=== PATIENT | female | born 1950 | race Caucasian/White ===

== ENCOUNTER 2016-08-13 13:32 | Inpatient (IN) | payer MEDICARE, OTHER ==
[~2016-08-13] VITALS: Ht 162.6 cm; Wt 69.1 kg
[~2016-08-13 13:32] MED LIST: BUPR150T9 PO; CHOL3000 PO; ESTR0.5T PO; FLUT12AE8 IH; GABA-500 PO; LEVO50TA39 PO; MULT1CAP33 PO; VALA500T38 PO
[2016-08-13 13:35] VITALS: BP 130/67; PULSE 104; RESP 20; O2SAT 90
--- NOTE | 2016-08-13 14:05 | ED.REPORT ---
HPI-General Illness Date of Service Aug 13, 2016 ED Provider: Kyle Lewis DO This patient is a 65 year old female with a history of hypothyroidism, depression, and HSV presenting to the ED complaining of worsening SOB for 2 weeks. Her SOB started in October 2015 but she wasn't able to get a diagnosis. She has received CT scans previously which showed non-specific lung nodules which she is scheduled to have a biopsy for next Monday. Pt. also admits to intermittent cough with white sputum. She states cough is relieved by calming down but not relieved by cough syrup. She also complains of chills and headache but denies fever, CP, and urinary symptoms. Father had lung cancer. Pt. denies smoking. Her daughter states the patient is a hoarder and has a very dirty house with lots of allergens like dust and mold present. Nursing Notes Stated Complaint: SHORTNESS OF BREATH/COUGH Chief Complaint: General Complaint Nursing Notes Reviewed: Yes Allergies: Coded Allergies: No Known Allergies (Unverified , 08/10/16) Scheduled Bupropion HCl (Zyban) 150 Mg Tablet.er 75 MG PO DAILY Cholecalciferol (Vitamin D3) (Vitamin D3) 3,000 Unit Tablet 2,000-3,000 UNIT PO DAILY Estradiol (Estradiol) 0.5 Mg Tablet 0.5 MG PO DAILY Fluticasone Propionate (Flovent HFA 110 mcg) 12 Gm Aer.w.adap 1 PUFF IH BID Gabapentin (Gabapentin) 100 Mg Capsule 100 MG PO TID Levothyroxine (Levoxyl) 50 Mcg Tablet 50 MCG PO DAILY Valacyclovir (Valacyclovir) 500 Mg Tablet 500 MG PO DAILY Miscellaneous Medications Multivitamin (Multivitamins) 1 Each Capsule 1 EACH PO General Time Seen by MD: 14:04 Chief Complaint Breathing problem Hx Obtained From: Patient, Other family... Arrived By: Walk-in Sudden in Onset?: No Onset Occurred: More than a week ago... (>6 months) Symptom Duration: Since onset Severity: Current: No pain currently Severity: Maximum: No pain Recent Healthcare: No recent hospitalization, Recent doctor visit Similar Sx Previous: Yes Past Medical History Past Medical History HSV Hypothyroidism T12 compression fracture Emphysema Reports: Depression Past Surgical History None reported Smoking History Never Smoker Social History Other Social History: Good social support, Local resident Ambulatory Status Independent Review of Systems Full Review of Systems Constitutional: Reports: Chills, Denies: Fever Respiratory: Reports: Prod cough, white (Intermittent), Shortness of breath ( Started in October 2015) Cardiovascular: Denies: Chest pain Female: Denies: Dysuria, Hematuria Neurologic: Reports: Headache Complete sys rev & neg: except as marked. Physical Exam Vital Signs Vital Signs Date Time Temp Pulse Resp B/P Pulse Ox O2 Delivery O2 Flow Rate FiO2 08/13/16 17:28 88 20 128/89 91 Room Air 08/13/16 13:35 37.4 104 20 130/67 90 Room Air Initial VS: Reviewed Head / Eyes: Atraumatic, Normocephalic, PERRL ENT: Mucous membranes moist, Conjunctiva normal, No scleral icterus Neck: Supple, Full range of motion Extremities: Vascular intact, Neuro intact, No swelling Skin: Warm, Dry, No cyanosis Neurologic: Alert, Oriented, Nonfocal Psychiatric: Mood/affect normal, Behavior normal, Normal thought content General/Constitutional: Awake, Alert, No acute distress, Well developed Respiratory / Chest: Atraumatic, Breath sounds = bilat, No respiratory distress , No wheezing, No retractions Diffused inspiratory rales in all diaz Good air movement Cardiovascular: Heart rate NL Heart Rate / Rhythm: Positive: Tachycardia Heart Sounds / Murmur: Positive: Systolic murmur present.. (II/. Haskell best at right upper sternal border) Interpretation & Diagnostics Interpretation & Diagnostics: CT ANGIO CHEST PULMONARY EMBOLISM IMPRESSION: 1. No evidence of pulmonary embolism. 2. Progressive increase in diffuse bilateral groundglass nodules which again likely represent hypersensitivity pneumonitis. Dictated by: Eros Boyle M.D. on 08/13/2016 at 16:4 Lab Results Interpretation Result Diagram: 08/13/16 1430 08/13/16 1430 Test 08/13/16 14:30 08/13/16 14:41 White Blood Count 15.3th/mm3 (3.8-10.1) Red Blood Count 3.75mil/mm3 (3.90-5.20) Hemoglobin 11.8g/dL (12.0-15.6) Hematocrit 35.3% (35.0-46.0) Mean Corpuscular Volume 94.1fL (81-100) Mean Corpuscular Hemoglobin 31.5pg (27.0-35.0) Mean Corpuscular Hemoglobin Concent 33.4% (32.0-37.0) Red Cell Distribution Width 14.1% (12.3-15.4) Platelet Count 343bil/L (150-400) Neutrophils (%) (Auto) 93.0% (40-74) Lymphocytes (%) (Auto) 4.9% (14-46) Monocytes (%) (Auto) 1.7% (4-12) Eosinophils (%) (Auto) 0.1% (0-5) Basophils (%) (Auto) 0.1% (0-3) Sodium Level 131mEq/L (134-144) Potassium Level 3.7mEq/L (3.5-5.2) Chloride Level 93mEq/L (97-108) Carbon Dioxide Level 23mmol/L (18-29) Blood Urea Nitrogen 21mg/dL (8-27) Creatinine 1.25mg/dL (0.57-1.00) Estimat Glomerular Filtration Rate 61mL/min (>59) Glucose Level 135mg/dL (60-99) Calcium Level 10.0mg/dL (8.5-10.1) Total Bilirubin 0.7mg/dL (0.0-1.2) Aspartate Amino Transf (AST/SGOT) 36U/L (0-50) Alanine Aminotransferase (ALT/SGPT) 14U/L (0-32) Alkaline Phosphatase 63U/L (25-165) Troponin T < 0.010ug/L (0.0-0.011) Pro-B-Type Natriuretic Peptide 599.9pg/mL (0-301) Total Protein 6.9g/dL (6.4-8.4) Albumin 3.3g/dL (3.4-5.0) Hold Clinton Top Tube Received (Received) ECG Interpretation ECG Interpretation: Sinus rhythm with a rate of 96 inverted T wave in III no previous EKG for comparison Time: 15:01 Interpreted by: ED physician Re-Eval/Medical Decision Med Decision/Clinical Course 65-year-old female with history of what sounds to be chronic progressive lung disease at this time presents with worsening shortness of breath and hypoxia today. She has not had a CT angiogram to look for pulmonary embolism to this point so I ordered one today in light of her tachycardia, shortness of breath, and hypoxia which returned negative for PE except there is worsening chronic changes consistent with hypersensitivity pneumonitis. As she is hypoxic she cannot be discharged and will need further workup and treatment for her lung condition. She is scheduled to have a lung biopsy with Dr. Yanez on Monday. I do not suspect any infectious cause of her symptoms at this time as she is not febrile and her CT is not consistent with infection. She has had a cardiac workup including an echocardiogram which all returned relatively normal. EKG today is normal. I believe all the cause of her shortness of breath and hypoxia her hypersensitivity pneumonitis. Source of Hx: Old records, Family Time of Eval: 17:16 Re-Evaluation/Progress Note: Pt. rechecked. Informed pt. of results and labs. Want to take pt. off of oxygen to see how she does without it. If she doesn't do OK, we'll have to possibly admit. If she does do OK, we'll have her walk and see how she does. If she does OK, she'll be discharged. Time of Eval: 17:35 Re-Evaluation/Progress Note: Oxygen dropped to 87-88% after nasal cannula removed. Therefore she will be admitted. Consultation : Referral / Consult Name: Leland Carter MD Consulted With: Hospitalist Call Returned at: 17:44 Cooker Soda: Will see patient, Agrees with eval, Agrees with plan, Accepts admit Note: Case discussed Counseled Regarding: Diagnosis, Lab results, Need for admission Discharge & Departure Primary Impression: Hypoxia Additional Impressions: Hypersensitivity pneumonitis Leukocytosis Leukocytosis type: unspecified Qualified Code: D72.829 - Elevated white blood cell count, unspecified Disposition: ADMITTED TO HOSPITAL Discharge Condition All VS Reviewed: Yes Condition: Stable Referrals: Vira Coker (PCP) Scribe Attestation Portions of this note were transcribed by Pricila Gabriel. I, Dr. Lewis personally performed the history, physical exam and medical decision- making; I reviewed and confirmed the accuracy of the information in the transcribed note. Signed by: Channing Owens, 08/13/2016 and 1840. copies to: Vira Coker Gary R DO Aug 13, 2016 14:05 Maggie Dalton [Pricila] Aug 13, 2016 14:25 CHE GABRIEL Aug 13, 2016 14:49
[2016-08-13 14:51] LABS: BASOPHILS % (AUTO) 0.1 % (0-3); EOSINOPHILS % (AUTO) 0.1 % (0-5); MONOCYTES % (AUTO) 1.7 % (4-12); Mean Corpuscular Hemoglobin 31.5 pg (27.0-35.0); Mean Corpuscular Volume 94.1 fL (81-100); Platelet Count 343 bil/L (150-400)
[2016-08-13 15:21] LABS: TROPONIN T < 0.010 ug/L (0.0-0.011)
--- NOTE | 2016-08-13 16:43 | DRSVH ---
PROCEDURE: CT ANGIO CHEST PULMONARY EMBOLISM ([id number]) INDICATIONS: Tachycardia, hypoxia, shortness of breath. TECHNIQUE: After the administration of intravenous contrast, 2 mm thick sections acquired from the pulmonary api arlene to the posterior costophrenic angles. 3-dimensional maximum intensity projection (MIP) coronal a nd sagittal reformats were then acquired through the thorax. For radiation dose reduction, the follo wing was used: automated exposure control, adjustment of mA and/or kV according to patient size. COMPARISON: [facility], CT, CT CHEST HIGH RESOLUTION, 05/12/2016, 13:51. [facility], CT, CT CHEST WO CON, 03/14/2016, 11:10. FINDINGS: Image quality: Excellent. Pulmonary arteries: Pulmonary arteries are normal in size, and demonstrate no intraluminal filling d efects to suggest central pulmonary embolism. Lungs and pleura: There are diffuse bilateral groundglass opacities with a centrilobular distributio n which appear increased from the prior studies. No pleural effusions or pneumothorax. No acute con solidation. Central and peripheral airways are patent. Mediastinum: Heart size is normal, without pericardial effusion. There are mildly prominent mediast inal and hilar lymph nodes redemonstrated. There is aneurysmal dilatation of ascending thoracic aort a measuring up to approximately 4.3 cm, stable from the prior study. There is mild concentric wall t hickening of the esophagus. Bones and chest wall: No suspicious bony lesions. Ribs and thoracic spine appear intact throughout. Thyroid gland demonstrates no discrete nodules. No axillary or supraclavicular adenopathy. Abdomen: Visualized upper abdominal solid organs appear normal in the early arterial phase of enhanc ement. IMPRESSION: 1. No evidence of pulmonary embolism. 2. Progressive increase in diffuse bilateral groundglass nodules which again likely represent hypers ensitivity pneumonitis. Dictated by: Eros Boyle M.D. on 08/13/2016 at 16:41 Approved by: Eros Boyle M.D. on 08/13/2016 at 16:41
[2016-08-13 17:28] VITALS: BP 128/89; PULSE 88; RESP 20; O2SAT 91
[2016-08-13] MEDS ORDERED: Alum-Mag Hydrox-Simeth 30 mL Suspension PO PRN (18:00)
[2016-08-13] MEDS ORDERED: Polyethylene Glycol (PEG) 17 Gm Powder PO PRN (18:00)
[2016-08-13] MEDS ORDERED: Ondansetron 2 mg/mL 2 mL Inj IVPUSH PRN (18:00)
--- NOTE | 2016-08-13 18:44 | PCM.HPMED ---
Subjective Date of Service Aug 13, 2016 Primary Provider: Admitting Physician: Primary Care Physician: Vira Coker Attending Physician: Admit Status: From the Emergency Department Chief Complaint: worsening shortness of breath History of Present Illness: 65 year old female with a history of hypothyroidism, depression, and HSV presented to the ED with c/o worsening SOB for two weeks. She states that shortness of breath started in October 2015 but she wasn't able to get a proper diagnosis. She has received CT scans previously which showed non-specific lung nodules which she is scheduled to have a biopsy for next Monday. She also reports intermittent cough with white sputum associated with mild head ache. She denies fever, chills, chest pain. She denies smoking. In ED, she was found to be tachycardic, normotensive, with 91% saturation on room air. Labs revealed leukocytosis and mild hyponatremia. Allergies Coded Allergies: No Known Allergies (Unverified , 08/10/16) PMH HSV Hypothyroidism T12 compression fracture Emphysema Depression Surgical History - None Social History Hx Alcohol Use: No Hx Substance Use: No Smoking Status: Never Smoker Exam Vital Signs Vital Sign - Last Date Time Temp Pulse Resp B/P Pulse Ox O2 Delivery O2 Flow Rate FiO2 08/13/16 17:28 88 20 128/89 91 Room Air 08/13/16 13:35 37.4 Exam General/Constitutional: Awake, Alert, No acute distress, Well developed Head / Eyes: Atraumatic, Normocephalic, PERRL ENT: Mucous membranes moist, Conjunctiva normal, No scleral icterus Neck: Supple, Full range of motion Respiratory / Chest: In mild respiratory distress, Decreased breath sounds bilaterally, No wheezing, No retractions. Diffused inspiratory rales in all diaz. Cardiovascular: regular rate and rhythm, no murmur Extremities: Vascular intact, Neuro intact, No swelling Skin: Warm, Dry, No cyanosis Neurologic: Alert, Oriented, Nonfocal Psychiatric: Mood/affect normal, Behavior normal, Normal thought content Lab and Diagnostics Result Diagram: 08/13/16 1430 08/13/16 1430 Assessment & Plan 65 year old female with a history of hypothyroidism, depression admitted for worsening shortness of breath likely interstitial pneumonitis. Shortness of breath - chronic - Following shotblast operator as an out patient. Schedule for lung biopsy. - CTA chest revealed interstitial pneumonitis. - Will start on azithromycin and oral prednisone - Pulmonology evaluation tomorrow Hypothyroidism - Will resume home medication synthroid 50 mcg daily Depression - Will resume Wellbutrin 75 mg daily Mild leukocytosis - Likely reactive to to interstitial pneumonitis - Will treat with azithromycin Hyponatremia - Na: 131 - Will start gently IV hydration - Will continue to monitor GI ppx: PPI DVT ppx: Heparin Anti emetics and analgesics as per protocol. Status: To be admitted as an inpatient due to complexity of medical condition that will require more than two days of hospital stay Pain Evaluation: Adequate Pain Control GI Prophylaxis: Proton Pump Inhibitor VTE Prophylaxis: Sub-Q Heparin (Unfractionated) Resuscitation Status: CPR: Attempt Resuscitation Leland Carter MD Aug 13, 2016 18:09
[2016-08-13 19:24] VITALS: BP 98/70; PULSE 81; RESP 20; O2SAT 93
[2016-08-13] MEDS ORDERED: BUPR75TA10 PO (20:04)
[2016-08-13] MEDS ORDERED: GABA-502 PO (20:04)
[2016-08-13] MEDS ORDERED: VALA500T38 PO (20:04)
[2016-08-13] MEDS: 0.9% Sodium Chloride 1,000 ML IV SCH (20:30)
[2016-08-13] MEDS ORDERED: Fluticasone 100 mCg Inhaler INHALATION SCH (20:30)
[2016-08-13] MEDS: predniSONE 20 mg Tablet PO SCH (22:07)
[2016-08-13] MEDS ORDERED: Codeine-guaiFENesin 5 mL Syrup PO PRN (22:35)
[2016-08-13] MEDS: Albuterol-Ipratropium 3 mL Inhalation Solution NEB PRN (22:45)
[2016-08-13 22:46] VITALS: PULSE 85; RESP 18; O2SAT 95
[2016-08-13] MEDS: Codeine-guaiFENesin 10 mL Syrup PO PRN (22:56)
[2016-08-13 23:12] LABS: APPEARANCE,URINE CLEAR (CLEAR,HAZY); COLOR,URINE STRAW (YELLOW); OCCULT BLOOD,URINE NEGATIVE (NEGATIVE); UROBILINOGEN,URINE NORMAL (NORMAL)
[2016-08-14] VITALS (9 sets, daily range): BP systolic 112–133; BP diastolic 73–85; PULSE 86–109; RESP 16–20; O2SAT 94–96
[2016-08-14] MEDS: Heparin 5,000 Unit/mL Inj SUBQ SCH ×3 (00:14→15:36)
--- NOTE | 2016-08-14 05:46 | NUR ---
Admit/SOB Pt has been admitted from ED to [facility]. Pt has been having SOB upon admission and would require o2 for comfort. Has been having intermittent dry cough. Breathing Tx provided PRN. Med rec done, vss, denies chest pain, n/v and abd discomfort. Hourly rounding done and pt has slept most of the night.
[2016-08-14 06:19] LABS: BASOPHILS % (AUTO) 0.1 % (0-3); EOSINOPHILS % (AUTO) 0 % (0-5); MONOCYTES % (AUTO) 0.6 % (4-12); Mean Corpuscular Hemoglobin 31.2 pg (27.0-35.0); Mean Corpuscular Volume 95.1 fL (81-100); NEUTROPHILS % (AUTO) 94.4 % (40-74); Platelet Count 331 bil/L (150-400)
[2016-08-14] MEDS: Pantoprazole 40 mg ER24 Tablet PO SCH (07:30)
[2016-08-14] MEDS: 0.9% Sodium Chloride 1,000 ML IV SCH (07:30)
[2016-08-14] MEDS: predniSONE 20 mg Tablet PO SCH (07:40)
--- NOTE | 2016-08-14 10:45 | NUR ---
Social Work-initial assessment: Data:See initial assessment. Pt is a 65 y/o female who was admitted on 08/13/16 for hypoxia per H&P. Pt's insurance is [employer] and PCP is RYAN Franz. EMR Reviewed. Pt's readmission score is 3-high risk. SW met with pt at bedside to discuss discharge planning, SW role explained.PT alert and oriented x3. Pt resides at home alone where she remains independent with ADLs. Pt drives and does not use any DME. Pt has no HH or SNF history. Pt has no detention care or VA benefits. SW discussed DPOA/advanced directive, pt states she has not completed this and is interested in information. SW provided pt with information and forms. Pt is currently on 3 liters of O2, which is not pt's baseline. Pt states she plans to stay with her daughter Deisy at discharge. Pt's daughter to provide transport home at discharge.Per RN notes, pt has been up independent in her room. SW provided phone number and plan on white board in room. No anticipated discharge needs. SW will continue to follow if needs arise. Assessment:Pt who is independent at baseline. Plan:Pt to discharge home with daughter when medically stable via POV. No anticipated discharge needs. SW will continue to follow if needs arise. CYNDY Quintanilla Addendum: 08/14/16 at 1049 by RAJIV GUZMAN Amended: Links added.
--- NOTE | 2016-08-14 14:26 | NUR ---
Observation information provided and explained.
--- NOTE | 2016-08-14 17:32 | NUR ---
Respiratory Pt went for short walk in hallway on RA, pt immediately desaturated to SpO2 85%; requires oxygen at 2L NC to maintain SpO2 >93%. Pt with dyspnea with minimal exertion.
--- NOTE | 2016-08-14 20:48 | PCM.PNMED ---
Subjective Date of Service Aug 14, 2016 Subjective The patient is feeling a little bit better since admission. However she still gets very short of breath with any exertion. She continues to complain of a cough. She has no other new complaints. Exam Vital Signs Vital Sign - Last Date Time Temp Pulse Resp B/P Pulse Ox O2 Delivery O2 Flow Rate FiO2 08/14/16 19:25 36.4 92 20 133/83 95 Nasal Cannula 2.00 Intake and Output 08/13/16 08/13/16 08/14/16 Cumulative From/Thru 15:00 23:00 07:00 08/13/16 13:35 - 08/14/16 05:13 Intake Total 618 ml 618 ml Output Total 1600 ml 1600 ml Balance -982 ml -982 ml Intake Oral 618 ml 618 ml Output Urine Total 1600 ml 1600 ml Exam General: Patient is sitting on the side of the bed with her oxygen on via nasal cannula eating her dinner. She is in no apparent distress with oxygen HEENT: Head is atraumatic normocephalic. Eyes: Pupils are equally round and reactive to light and accommodation. Extraocular muscles are intact. Sclera are white anicteric. Subconjunctival mucosa is pink. Ears and nose are unremarkable. Oropharynx: There is no mucosal lesions, there is no thrush, there is no pharyngitis. Neck: Is supple, there are no nodes or masses or tenderness. Chest: Is clear to auscultation and percussion. There are no rales, rhonchi, wheezes or rubs. Heart: Rate, rhythm is regular. There is no murmur, rub or gallop. Abdomen: Good bowel sounds are present. Abdomen is soft, nontender, no organomegaly or masses were appreciated. Extremities: Are symmetrical and well perfused. There is no edema, there is no cellulitis, no rash. Neurologic: There are no focal neurological deficits. Cranial nerves II through XII are intact. There are no sensory or motor deficits. Psychiatric: Patients mood is calm and shows no sign of agitation. Genital: Deferred Rectal: Deferred Lab and Diagnostics Result Diagram: 08/14/16 0550 08/14/16 0550 Microbiology Name: STEVEN DICKINSON Age/Sex: 65/F Attend Dr: Suni Lantigua MD Acct: [id number] Unit: [id number] [place] [facility] Re06/09/16 Disch: Specimen: [id number] Collected: 06/09/16 Status: JELENA Req#: [id number] Received: 06/09/16 Source: [facility] Sp Desc : Jasper Dr: Suni Lantigua MD Ordered: LEGION DFA&CULT, AFB CULT & SMR Procedure Result Verified Site Microbiology LEGIONELLA DFA Final 06/21/16- 1307 LCB Negative Reference Range: Negative * This is a corrected result. * A prior result that was reported as final has been changed. LEGIONELLA CULTURE Final 06/21/16- 1307 LCB Final report LEGIONELLA SP CULT RESULT 1 Final 06/21/16- 1308 LCB Comment Culture Report: No Legionella species isolated. Performed at: [address] [id number] Email Engineer: Prakash Mcclain MD, Phone: [phone] AFB SPECIMEN PROCESSING Final 07/26/16- 1207 LCB Concentration ACID FAST SMEAR Final 07/26/16- 1207 LCB Negative * This is a corrected result. * A prior result that was reported as final has been changed. ACID FAST CULTURE Final 07/26/16- 1207 LCB Negative CONTINUED ON NEXT PAGE RUN DATE: 07/26/16 [facility] LIVE PAGE 2 RUN TIME: 1208 Specimen Inquiry PHYSICIAN Patient: STEVEN DICKINSON [id number] (Continued) Specimen: [id number] Collected: 06/09/16 Received: 06/09/16811 (Continued) Procedure Result Verified Site ACID FAST CULTURE Final (continued) 07/26/16-1208 No acid fast bacilli isolated after 6 weeks. Performed at: [facility] [id number] Email Engineer: Eros Day MD, Phone: [phone] X-Rays, CTs and MRIs PROCEDURE: CT ANGIO CHEST PULMONARY EMBOLISM ([id number]) INDICATIONS: Tachycardia, hypoxia, shortness of breath. TECHNIQUE: After the administration of intravenous contrast, 2 mm thick sections acquired from the pulmonary apices to the posterior costophrenic angles. 3-dimensional maximum intensity projection (MIP) coronal and sagittal reformats were then acquired through the thorax. For radiation dose reduction, the following was used: automated exposure control, adjustment of mA and/or kV according to patient size. COMPARISON: [facility], CT, CT CHEST HIGH RESOLUTION, 05/12/2016, 13:51. [facility], CT, CT CHEST WO CON, 03/14/2016, 11:10. FINDINGS: Image quality: Excellent. Pulmonary arteries: Pulmonary arteries are normal in size, and demonstrate no intraluminal filling defects to suggest central pulmonary embolism. Lungs and pleura: There are diffuse bilateral groundglass opacities with a centrilobular distribution which appear increased from the prior studies. No pleural effusions or pneumothorax. No acute consolidation. Central and peripheral airways are patent. Mediastinum: Heart size is normal, without pericardial effusion. There are mildly prominent mediastinal and hilar lymph nodes redemonstrated. There is aneurysmal dilatation of ascending thoracic aorta measuring up to approximately 4.3 cm, stable from the prior study. There is mild concentric wall thickening of the esophagus. Bones and chest wall: No suspicious bony lesions. Ribs and thoracic spine appear intact throughout. Thyroid gland demonstrates no discrete nodules. No axillary or supraclavicular adenopathy. Abdomen: Visualized upper abdominal solid organs appear normal in the early arterial phase of enhancement. IMPRESSION: 1. No evidence of pulmonary embolism. 2. Progressive increase in diffuse bilateral groundglass nodules which again likely represent hypersensitivity pneumonitis. Dictated by: Eros Boyle M.D. on 08/13/2016 at 16:41 Approved by: Eros Boyle M.D. on 08/13/2016 at 16:41 Cardiac Echo Impressions Echocardiogram Report Name: STEVEN DICKINSON AStudjohanna Date: 03/14/2016 Height: 64 in Hospital Exam Location: [facility] Weight: 174 lb Gender: Female BSA: 1.8 m2 : 1950 Age: 65 yrs BP: 127/82 mmHg Reason For Study: SOB Ordering Physician: Lea Smith Performed By: Nicolasa Nixon Referring Physician: RYAN Coker Interpretation Summary Left ventricular wall thickness is borderline increased. The ejection fraction is estimated to be 60-65%. Spectral Doppler of the mitral valve is reversed, with an E/A wave ratio < 1.0. There is mild aortic regurgitation. There is mild aortic valve sclerosis. The right ventricular systolic pressure is estimated at 29 mmHg assuming a right atrial pressure of 3 mm Hg. Assessment & Plan 65 year old female with a history of hypothyroidism, depression admitted for worsening shortness of breath likely interstitial pneumonitis. Acute on chronic respiratory failure with hypoxia. 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 She did not require oxygen during that time. She is now hypoxic with any exertion. I got her up from her bed with room air to walk into the hallway and her O2 saturation dropped to 85% this was witnessed by her nurse Ysabel. - Following global marketing coordinator as an out patient. Schedule for lung biopsy. - CTA chest revealed: Progressive increase in diffuse bilateral groundglass nodules. - Will continue on azithromycin and oral prednisone as patient is subjectively improved - Pulmonology evaluation to follow -Check respiratory virus PCR screen Hypothyroidism - Will continue home medication synthroid 50 mcg daily Depression - Will continue Wellbutrin 75 mg daily Mild leukocytosis - Likely reactive to to interstitial pneumonitis. Could be due to bilateral interstitial pneumonia - Will continue azithromycin Hyponatremia - Na: 131 - Will continue gentle IV hydration - Will continue to monitor Discussed with patient and patient's daughter at bedside and they both agree with the above plan. GI ppx: PPI DVT ppx: Heparin Anti emetics and analgesics as per protocol. Status: To be admitted as an inpatient due to complexity of medical condition that will require more than two days of hospital stay. Along with significant hypoxia with any exertion and progressive pulmonary infiltrates demonstrated by CT scanning. Pain Evaluation: Adequate Pain Control GI Prophylaxis: Proton Pump Inhibitor VTE Prophylaxis: Sub-Q Heparin (Unfractionated) Resuscitation Status: CPR: Attempt Resuscitation MegEmeterio gomez MD Aug 14, 2016 20:48
--- NOTE | 2016-08-14 21:20 | NUR ---
Inpatient status effective today, 08/14/16
[2016-08-15] VITALS (12 sets, daily range): BP systolic 112–136; BP diastolic 68–87; PULSE 75–102; RESP 15–20; O2SAT 93–99
[2016-08-15] MEDS: Heparin 5,000 Unit/mL Inj SUBQ SCH ×4 (00:30→22:12)
[2016-08-15] MEDS: Codeine-guaiFENesin 10 mL Syrup PO PRN ×2 (03:16→22:11)
[2016-08-15] MEDS: Albuterol-Ipratropium 3 mL Inhalation Solution NEB PRN ×2 (03:18→23:02)
[2016-08-15] MEDS ORDERED: LORazepam 1 mg Tablet PO ONE ×2 (04:55→23:30)
--- NOTE | 2016-08-15 06:02 | NUR ---
SOB/Anxiety Pt complains of sob when coughing. Breathing tx and cough medication administered PRN. 0500 pt complains of her legs being restless. Notified MD and ordered Lorazepam once. No complains after.
[2016-08-15 07:12] LABS: BASOPHILS % (AUTO) 0.2 % (0-3); EOSINOPHILS % (AUTO) 0.9 % (0-5); Mean Corpuscular Hemoglobin 31.2 pg (27.0-35.0); Mean Corpuscular Volume 95.1 fL (81-100); NEUTROPHILS % (AUTO) 71.6 % (40-74); Platelet Count 308 bil/L (150-400)
[2016-08-15] MEDS: predniSONE 20 mg Tablet PO SCH (08:14)
[2016-08-15] MEDS: Pantoprazole 40 mg ER24 Tablet PO SCH (08:14)
[2016-08-15 08:44] LABS: ERYTHROCYTE SEDIMENTATION RATE 36 mm/hr (0-40)
[2016-08-15 08:49] LABS: Magnesium 1.8 mg/dL (1.6-2.6)
[2016-08-15] MEDS: Furosemide 10 mg/mL 2 mL Inj IVPUSH ONE ×2 (09:05→11:16)
--- NOTE | 2016-08-15 10:56 | NUR ---
Medicare Important Message provided with explanation - signed by patient and placed in chart at 1030. Doni Pompa RN
--- NOTE | 2016-08-15 11:04 | DRSVH ---
PROCEDURE: X-RAY CHEST, TWO VIEWS ([id number]) INDICATIONS: interstitial nodular pneumonia TECHNIQUE: 2 views of the chest were acquired. COMPARISON: [facility], CT, CT ANGIO CHEST PE, 08/13/2016, 15:38. FINDINGS: Surgical changes and devices: None. Lungs and pleura: Interval decrease in diffuse, widespread bilateral interstitial pulmonary densities . Mediastinum: Mediastinal contours are normal. Heart size is normal. Bones and chest wall: No suspicious bony abnormalities. Soft tissues appear unremarkable. IMPRESSION: Decreasing bilateral interstitial opacities when compared to prior CT scan suggesting res olving atypical infection. Dictated by: Suhas Plata RRA Interpreted: Ashley Martinez MD on 08/15/2016 at 11:04 Transcribed by: COLLIN on 08/15/2016 at 11:04 Approved by: Ashley Martinez MD, PhD on 08/15/2016 at 17:10
--- NOTE | 2016-08-15 11:36 | NUR ---
Refused meds Patient refusing Heparin and Lazix. "I don't normally take them and i see no reason to start now. Patient also unhappy that she did not receive breakfast "well, I was asleep because I received medications at 5 am". "Starting my day off with lunch is not my idea of a good start for my day".
--- NOTE | 2016-08-15 15:30 | DRSVH ---
[facility] [address] [place] [address] Echocardiogram Report Name: STEVEN DICKINSON Date: 08/15/2016 Height : 64 in Hospital Exam Location: [facility] Weight : 152 lb Gender: Female BSA: 1 .7 m2 : 1950 Age: 65 yrs BP: 11 3/71 mmHg Reason For Study: New Murmur Ordering Physician: NELLY GOMEZ EPerformed By: Eusebio Campos Referring Physician: NELLY GOMEZ Interpretation Summary The left ventricle is normal in size. Left ventricular systolic function is normal. AR by color doppler appears to be mild to moderate however increasing AR slope and decreasing PHT suggest worsening of AI especially with diastolic reversal in aorta, consider KAREN to evaluate AV. There is mild tricuspid regurgitation. The right ventricular systolic pressure is estimated at 43 mmHg assuming a right atrial pressure of 3 mm Hg. Compared to the prior echo exam, there has been an increase in the severity of pulmonary hypertension. Procedure: A two-dimensional transthoracic echocardiogram with color flow and Doppler was performed. The study quality was technically adequate. Comparison is made with the echocardiogram of 03/14/16. The patient was in normal sinus rhythm during the exam. Left Ventricle: The left ventricle is normal in size. There is normal left ventricular wall thickness. Left ventricular systolic function is normal. The ejection fraction is estimated to be 65-70%. There are no focal wall motion abnormalities. Spectral Doppler of the mitral inflow yields an E/A ratio that is between 0.8 and 1.5. Right Ventricle: The right ventricle is normal in size and function. Atria: Both atria are normal in size. The interatrial septum is intact with no evidence for an atrial septal defect. Mitral Valve: The mitral valve leaflets are thin and open well. There is mild mitral annular calcification. There is trace mitral regurgitation. Aortic Valve: The aortic valve is trileaflet. The aortic valve opens well. There is increased velocity at the left ventricular outflow tract. AR by color doppler appears to be mild to moderate however increasing AR slope and decreasing PHT suggest worsening of AI especially with diastolic reversal in aorta, consider KAREN to evaluate AV. Tricuspid Valve: The tricuspid valve is normal. There is mild tricuspid regurgitation. The right ventricular systolic pressure is estimated at 43 mmHg assuming a right atrial pressure of 3 mm Hg. There is mild pulmonary hypertension. Compared to the prior echo exam, there has been an increase in the severity of pulmonary hypertension. Pulmonic Valve: The pulmonic valve is not well visualized. There is a trace or physiologic amount of pulmonic regurgitation. Great Vessels: The aortic root is normal size. The ascending aorta is moderate-severely enlarged. This is increased compared to the previous study. The aortic arch is normal in size. The pulmonary artery is normal size. The IVC is of normal diameter and collapses greater than 50% with a sniff. This suggests a low right atrial pressure of 3 mm Hg. Pericardium/ Pleura There is no pericardial effusion. There is no pleural effusion. MMode/2D Measurements & Calculations LVIDd: 3.8 cm LA dimension: 3.1 cm RA long axis LVOT diam: 1.8 cm LVIDs: 2.5 cm AoV Openin.8 cm FS: 34.2 % LA A2 area: 21.5 cm RA area Ao root diam: 3.2 cm EPSS: 0.23 cm LA A4 area: 18.7 cm Aortic Jxn: 3.1 cm IVSd: 0.87 cm LA length (vol) : 13.7 cm asc Aorta Diam LVPWd: 0.71 cm RA vol LA vol: 55.9 ml : 30.7 ml Ao Arch Diam LA vol index RA (Proximal trans.) : 17.6 mm2 IVC diam: 2.0 cm LV morgan. diameter/BSALV sys. diameter/BSA RVD1 (basal) TAPSE: 2.4 cm (cm/m^2): 2.2 (cm/m^2): 1.5 Doppler Measurements & Calculations Ao V2 max MV E max olman MV E/A: 1.1 TR max olman : 336.3 cm/sec : 111.5 cm/sec Med Peak E' Olman : 299.8 cm/sec Ao max PG MV A max olman TR max PG : 52.2 mmHg : 103.7 cm/sec E/E' med: 12.5 : 39.9 mmHg Ao mean PG MV P1/2t: 66.3 msec Lat Peak E' Olman PA V2 max : 33.6 mmHg : 105.0 cm/sec LVOT Max Olman E/E' lat: 10.9 PA mean PG : 192.8 cm/sec MV A dur: 0.13 sec PA Accel Time POLO(I,D): 0.92 cm : 0.10 sec sev ratio AI P1/2t : 242.1 msec AI dec slope : 557.3 cm/s2c MV dec time MV P1/2t max olman Ao V2 mean LV V1 max PG : 0.22 sec : 257.7 cm/sec MVA(P1/2t): 3.3 cm2 Ao V2 VTI: 96.0 cm LV V1 VTI POLO(V,D): 1.4 cm2 AI Accel Time : 0.04 sec PA V2 mean POLO indexed to BSA E/e' average : 86.3 cm/sec (cm^2/m^2): 0.53 : 11.7 PA pr(Accel) : 32.4 mmHg Electronically signed by: Galen Krishnan on Reading Physician:08/15/2016 03:29 PM
--- NOTE | 2016-08-15 16:51 | CONS ---
[address] [address] CONSULTATION REPORT PATIENT: STEVEN DICKINSON : 1950 MR#: [id number] ADMIT: 08/13/2016 JOB ID: [id number] DATE OF SERVICE: 08/15/2016 REASON FOR CONSULTATION: Bilateral interstitial infiltrates with chronic dry cough. HISTORY OF PRESENT ILLNESS: The patient has about an eight month history of slowly progressive dry cough, shortness of breath and dyspnea. This has gradually worsened despite aggressive outpatient workup. She has been worked up in the outpatient setting by Dr. Lantigua of Pulmonary who has ordered a variety of serologies including ANCA, rheumatoid factor, CCP, LEXIS and multiple other immunologic parameters. Little has come back positive from this workup except for a mildly elevated CCP which is in the weakly positive. Dr. Lantigua also performed a bronchoalveolar lavage about two months ago and the results of that were uniformly negative. The patient is tentatively scheduled for a lung biopsy tomorrow in an attempt to make a definitive diagnosis, but required hospitalization over the weekend on August 13 because of progressive shortness of breath. She states that she continues to have a cough, but it is nonproductive. No fevers, no chills, no sweats and no overt symptoms of infection. Because of his underlying history of interstitial pneumonitis, we reviewed her life-long travel and exposure history in great detail. In the fairly distant past the patient has traveled to [place], the [facility] and the [place], but none of this travel has occurred within the past few years. Her exposure history is interesting in that she lives in a house which she admits is approaching that of a hoarder in terms of the amount of debris and accumulated material in the house. She also states that over the past several years, she has had six cats, all of whom have now finally , and that the vet told her that some of their deaths may have been due to allergies or environmental issues arising from living in her house. She tells us that her daughter as well as a belt maker helper who occasionally comes into her home report that they developed allergic-type symptoms almost immediately on arrival. She also tells us that she has only spent nights away from the home twice over the past eight months since the onset of these symptoms and these were short stays at her daughter's house, but even during those short stays she did seem to improve somewhat. PAST MEDICAL HISTORY: 1. Hypothyroidism. 2. Depression. 3. Recurrent genital herpes. 4. T12 compression fracture which is reported to have arisen from a work injury when she was twisting. SOCIAL HISTORY: The patient lives by herself in the cluttered home described above. She no longer has any cats because they all . She neither smokes nor drinks. She is a lifelong nonsmoker. She is currently not working. FAMILY HISTORY: Negative for tuberculosis. REVIEW OF SYSTEMS: The patient reports no significant headache or visual change. No sores in the mouth or trouble swallowing. She does have this persistent intermittent dry cough since October 2015. She has also had increasing shortness of breath which eventually culminated in this admission. No chest pain per se. The patient has no history of reflux esophagitis-type symptoms, but she has coughed so long and so hard that it would lead to vomiting. No abdominal pain, nausea, vomiting, diarrhea, dysuria. No swelling of the joints at this time, though she does report that in the distant past she had swelling of both 1st toe MTP joints which resolved when she stopped drinking so much diet soda. No skin rashes or nodules to report. PHYSICAL EXAMINATION: Reveals an afebrile woman. Temp 36.8. She has been afebrile since admission. Pulse 93, respiratory rate 20, blood pressure 127/80, saturating 97% on 2 L. Patient looks reasonably healthy. Her BMI is 26. Examination of the head reveals no evidence of trauma. Eyes without conjunctivitis or scleral icterus. Oral cavity: No thrush, pharyngitis or hairy leukoplakia. Neck is without adenopathy, fairly supple. Lungs are clear posteriorly. Cardiac tones: Regular rate and rhythm and there could be a very subtle early systolic murmur, but if so, it is only about 1/6 and only can be heard with the patient holding her breath, leaning forward a little bit. The abdomen is soft, nontender, without organomegaly. There is no Sharp catheter. The joints are without changes that would be typical of rheumatoid arthritis. In fact, the joints of the hands are basically normal bilaterally. There are no joint effusions or other abnormalities. No skin rash noted. The patient is neurologically intact. LABORATORIES: Include a white count of 12,900 with completely normal diff. Throughout this admission there has been no eosinophilia. Creatinine 1.08. BNP 1500. CRP is 6.3. Procalcitonin 0.2. Immunologic studies included an IgE which is pending. It is worth noting that an IgE was done in the clinic in April that was normal. The patient also has a cocci antibody pending as well as a crypto antigen, but these were both negative in clinic earlier this year as well. Histo serum antigen is pending. Aspergillus serologies are pending, but these were negative in clinic in April as well and then a QuantiFERON Gold was just sent. The only micro we have available is a respiratory viral PCR which was negative. IMAGING: Was reviewed on the computer. The CT of the chest shows progressive increase in bilateral ground-glass infiltrates and this was compared to CT scans done back in the fall of 2015, so clearly there is progression. A routine chest x-ray done today shows, interestingly, decreasing bilateral infiltrates compared to the CT scan done only two days before. IMPRESSION: It seems unlikely at this juncture that this is an infectious interstitial pneumonitis. The patient has had these symptoms for almost eight months. A workup done by Dr. Lantigua did not find any obvious evidence of infection and the patient is relatively free of constitutional symptoms one would associate with chronic underlying infection. The possibility of cocci or histo or crypto exists, but it would be unlikely. Likewise, acid-fast organism would be unlikely as she had a bronchoscopy eight weeks ago and the final cultures for AFB and fungus on that culture were negative. The patient's history would seem to suggest a diagnosis. She tells us that when others come to her home, which has animal dander as well as a great deal of hoarding-type material, they develop allergic symptoms. Likewise she says that when she goes to her daughter's place, she gets better. Her chest x-ray today as compared to the CAT scan of a couple of days ago already suggests some interstitial clearing. All of this would suggest strongly that the diagnosis here is hypersensitivity pneumonitis perhaps related to animal products, generalized debris or mold which is reported to exist in her home. RECOMMENDATIONS: 1. No antibiotics at this time. 2. Will order an HIV test as the patient is not certain she has ever had one or at least not one in the past couple of decades. 3. I concur with the plan to proceed with a lung biopsy tomorrow as the patient's symptoms have gone on now for quite a sustained period and are actually getting worse. 4. I would not utilize any antibiotics at this point other than the prophylactic Valtrex she has been receiving. I note that she has been on azithromycin the last two days and, of course, it is possible that that is the agent of her improvement. She has also been on steroids for the last two days, so it is hard to know which if either of these is making any difference, but I would probably truncate the azithromycin at 3-5 days of therapy maximum while we await the results of the biopsy. 5. If not done, an angiotensin converting enzyme could be added to her labs, and we will add that for tomorrow morning as well. Thank you very much for allowing us to see this patient in consultation.
--- NOTE | 2016-08-15 17:14 | NUR ---
Patient also refusing multi vitamin due to cost.
[2016-08-15] MEDS ORDERED: diphenhydrAMINE 25 mg Capsule PO PRN (17:35)
--- NOTE | 2016-08-15 23:56 | PCM.PNMED ---
Subjective Date of Service Aug 15, 2016 Subjective Patient is beginning to feel a little bit better. She is closer to the baseline that she has been present for the last month. Unfortunately, for the last month she has been becoming progressively short of breath. Exam Vital Signs Vital Sign - Last Date Time Temp Pulse Resp B/P Pulse Ox O2 Delivery O2 Flow Rate FiO2 08/15/16 23:02 86 15 95 Room Air 08/15/16 22:10 36.5 133/85 08/15/16 17:20 2.00 Intake and Output 08/14/16 08/14/16 08/15/16 Cumulative From/Thru 15:00 23:00 07:00 08/13/16 13:35 - 08/14/16 19:24 Intake Total 2650 ml 3268 ml Output Total 1465 ml 3065 ml Balance 1185 ml 203 ml Intake Oral 1750 ml 2368 ml IV Total 900 ml 900 ml Output Urine Total 1465 ml 3065 ml # Bowel Movements 2 2 Exam General: Patient is sitting in bed with her oxygen via nasal cannula reading her book. She is in no apparent distress with oxygen HEENT: Head is atraumatic normocephalic. Eyes: Pupils are equally round and reactive to light and accommodation. Extraocular muscles are intact. Sclera are white anicteric. Subconjunctival mucosa is pink. Ears and nose are unremarkable. Oropharynx: There is no mucosal lesions, there is no thrush, there is no pharyngitis. Neck: Is supple, there are no nodes, or masses or tenderness. Chest: Is clear to auscultation and percussion. There are no rales, rhonchi, wheezes or rubs. Heart: Rate, rhythm is regular. There is no murmur, rub or gallop. Abdomen: Good bowel sounds are present. Abdomen is soft, nontender, no organomegaly or masses were appreciated. Extremities: Are symmetrical and well perfused. There is no edema, there is no cellulitis, no rash. Neurologic: There are no focal neurological deficits. Cranial nerves II through XII are intact. There are no sensory or motor deficits. Psychiatric: Patients mood is calm and shows no sign of agitation. Genital: Deferred Rectal: Deferred Lab and Diagnostics Result Diagram: 08/15/16 0640 08/15/1640 Microbiology Name: TEENA,STEVEN A Age/Sex: 65/F Attend Dr: Suni Lantigua MD Acct: [id number] Unit: [id number] Status: [facility] [place] Location: END Re06/09/16 Disch: Specimen: [id number] Collected: 06/09/16 Status: JELENA Req#: [id number] Received: 06/09/16 Source: [facility] Sp Desc : Subm Dr: Suni Lantigua MD Ordered: LEGION DFA&CULT, AFB CULT & SMR Procedure Result Verified Site Microbiology LEGIONELLA DFA Final 06/21/16- 1308 LCB Negative Reference Range: Negative * This is a corrected result. * A prior result that was reported as final has been changed. LEGIONELLA CULTURE Final 06/21/161307 LCB Final report LEGIONELLA SP CULT RESULT 1 Final 06/21/161307 LCB Comment Culture Report: No Legionella species isolated. Performed at: [address] [id number] Engineer Assistant: Prakash Mcclain MD, Phone: [phone] AFB SPECIMEN PROCESSING Final 07/26/16- 1207 LCB Concentration ACID FAST SMEAR Final 07/26/161207 LCB Negative * This is a corrected result. * A prior result that was reported as final has been changed. ACID FAST CULTURE Final 07/26/161207 LCB Negative CONTINUED ON NEXT PAGE RUN DATE: 07/26/16 [facility] LIVE PAGE 2 RUN TIME: 1208 Specimen Inquiry PHYSICIAN Patient: STEVEN DICKINSON [id number] (Continued) Specimen: [id number] Collected: 06/09/16-5 Received: 06/09/16-0053 (Continued) Procedure Result Verified Site ACID FAST CULTURE Final (continued) 07/26/16-1208 No acid fast bacilli isolated after 6 weeks. Performed at: [address] [id number] Engineer Assistant: Eros Day MD, Phone: [phone] X-Rays, CTs and MRIs PROCEDURE: CT ANGIO CHEST PULMONARY EMBOLISM ([id number]) INDICATIONS: Tachycardia, hypoxia, shortness of breath. TECHNIQUE: After the administration of intravenous contrast, 2 mm thick sections acquired from the pulmonary apices to the posterior costophrenic angles. 3-dimensional maximum intensity projection (MIP) coronal and sagittal reformats were then acquired through the thorax. For radiation dose reduction, the following was used: automated exposure control, adjustment of mA and/or kV according to patient size. COMPARISON: [facility], CT, CT CHEST HIGH RESOLUTION, 05/12/2016, 13:51. [facility], CT, CT CHEST WO CON, 03/14/2016, 11:10. FINDINGS: Image quality: Excellent. Pulmonary arteries: Pulmonary arteries are normal in size, and demonstrate no intraluminal filling defects to suggest central pulmonary embolism. Lungs and pleura: There are diffuse bilateral groundglass opacities with a centrilobular distribution which appear increased from the prior studies. No pleural effusions or pneumothorax. No acute consolidation. Central and peripheral airways are patent. Mediastinum: Heart size is normal, without pericardial effusion. There are mildly prominent mediastinal and hilar lymph nodes redemonstrated. There is aneurysmal dilatation of ascending thoracic aorta measuring up to approximately 4.3 cm, stable from the prior study. There is mild concentric wall thickening of the esophagus. Bones and chest wall: No suspicious bony lesions. Ribs and thoracic spine appear intact throughout. Thyroid gland demonstrates no discrete nodules. No axillary or supraclavicular adenopathy. Abdomen: Visualized upper abdominal solid organs appear normal in the early arterial phase of enhancement. IMPRESSION: 1. No evidence of pulmonary embolism. 2. Progressive increase in diffuse bilateral groundglass nodules which again likely represent hypersensitivity pneumonitis. Dictated by: Eros Boyle M.D. on 08/13/2016 at 16:41 Approved by: Eros Boyle M.D. on 08/13/2016 at 16:41 Cardiac Echo Impressions Echocardiogram Report Name: STEVEN DICKINSON AStudy Date: 03/14/2016 Height: 64 in Hospital Exam Location: [facility] Weight: 174 lb Gender: Female BSA: 1.8 m2 : 1950 Age: 65 yrs BP: 127/82 mmHg Reason For Study: SOB Ordering Physician: Lea Smith Performed By: Nicolasa Nixon Referring Physician: RYAN Coker Interpretation Summary Left ventricular wall thickness is borderline increased. The ejection fraction is estimated to be 60-65%. Spectral Doppler of the mitral valve is reversed, with an E/A wave ratio < 1.0. There is mild aortic regurgitation. There is mild aortic valve sclerosis. The right ventricular systolic pressure is estimated at 29 mmHg assuming a right atrial pressure of 3 mm Hg. Echocardiogram Report Name: STEVEN DICKINSON AStudy Date: 08/15/2016 Height : 64 in Hospital Exam Location: [facility] Weight : 152 lb Gender: Female BSA: 1 .7 m2 : 1950 Age: 65 yrs BP: 11 3/71 mmHg Reason For Study: New Murmur Ordering Physician: NELLY WEAVER EPerformed By: Eusebio Campos Referring Physician: NELLY WEAVER Interpretation Summary The left ventricle is normal in size. Left ventricular systolic function is normal. AR by color doppler appears to be mild to moderate however increasing AR slope and decreasing PHT suggest worsening of AI especially with diastolic reversal in aorta, consider KAREN to evaluate AV. There is mild tricuspid regurgitation. The right ventricular systolic pressure is estimated at 43 mmHg assuming a right atrial pressure of 3 mm Hg. Compared to the prior echo exam, there has been an increase in the severity of pulmonary hypertension. Assessment & Plan 65 year old female with a history of hypothyroidism, depression admitted for worsening shortness of breath likely interstitial pneumonitis. Acute on chronic respiratory failure with hypoxia. 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 She did not require oxygen during that time. She is now hypoxic with any exertion. I got her up from her bed with room air to walk into the hallway and her O2 saturation dropped to 85% this was witnessed by her nurse Ysabel. - Patient has been following Dr. Lantigua for pulmonary care. A lung biopsy has been scheduled for tomorrow and will proceed with this due to progressive increase in diffuse bilateral groundglass nodules in the lung of unknown etiology.. - CTA chest revealed: Progressive increase in diffuse bilateral groundglass nodules. - Will continue on azithromycin and oral prednisone as patient is subjectively improved. Lasix was also given yesterday 1 - Pulmonology evaluation to follow when Dr. Lantigua is available -Check respiratory virus PCR screen -Dr. Bernardo of infectious disease has been consulted and his impression and plan are as follows: IMPRESSION: It seems unlikely at this juncture that this is an infectious interstitial pneumonitis. The patient has had these symptoms for almost eight months. A workup done by Dr. Lantigua did not find any obvious evidence of infection and the patient is relatively free of constitutional symptoms one would associate with chronic underlying infection. The possibility of cocci or histo or crypto exists, but it would be unlikely. Likewise, acid-fast organism would be unlikely as she had a bronchoscopy eight weeks ago and the final cultures for AFB and fungus on that culture were negative. The patient's history would seem to suggest a diagnosis. She tells us that when others come to her home, which has animal dander as well as a great deal of hoarding-type material, they develop allergic symptoms. Likewise she says that when she goes to her daughter's place, she gets better. Her chest x-ray today as compared to the CAT scan of a couple of days ago already suggests some interstitial clearing. All of this would suggest strongly that the diagnosis here is hypersensitivity pneumonitis perhaps related to animal products, generalized debris or mold which is reported to exist in her home. RECOMMENDATIONS: 1. No antibiotics at this time. 2. Will order an HIV test as the patient is not certain she has ever had one or at least not one in the past couple of decades. 3. I concur with the plan to proceed with a lung biopsy tomorrow as the patient's symptoms have gone on now for quite a sustained period and are actually getting worse. 4. I would not utilize any antibiotics at this point other than the prophylactic Valtrex she has been receiving. I note that she has been on azithromycin the last two days and, of course, it is possible that that is the agent of her improvement. She has also been on steroids for the last two days, so it is hard to know which if either of these is making any difference, but I would probably truncate the azithromycin at 3-5 days of therapy maximum while we await the results of the biopsy. 5. If not done, an angiotensin converting enzyme could be added to her labs, and we will add that for tomorrow morning as well. Hypothyroidism - Will continue home medication synthroid 50 mcg daily Depression - Will continue Wellbutrin 75 mg daily Mild leukocytosis - Likely reactive to to interstitial pneumonitis. Could be due to bilateral interstitial pneumonia - Will continue azithromycin Hyponatremia - Na: 131 - Will continue gentle IV hydration - Will continue to monitor Discussed with patient at bedside and she agrees with the above plan. GI ppx: PPI DVT ppx: Heparin Anti emetics and analgesics as per protocol. Disposition: To be determined by her clinical course after her video-assisted thorascopic surgery with lung biopsy. Pain Evaluation: Adequate Pain Control GI Prophylaxis: Proton Pump Inhibitor VTE Prophylaxis: Sub-Q Heparin (Unfractionated) Resuscitation Status: CPR: Attempt Resuscitation Nelly Weaver MD Aug 15, 2016 23:56
[2016-08-16] VITALS (19 sets, daily range): BP systolic 94–132; BP diastolic 46–88; PULSE 66–96; RESP 12–20; O2SAT 95–100
--- NOTE | 2016-08-16 04:42 | NUR ---
O2/sleep Able to ambulate to the BR independently with less SOB this shift. SpO2 between 90%-95% on RA when awake. Sats dropped to 85%-86% on RA when sleeping; back to 2L O2 at night, sats in high 90s. benadryl and tylenol given for insomnia with no effect. Pt requested neb tx for coughing, which made her "palpitate, jittery, and anxious". requested Ativan again tonight. Rec'd a OT order and given. Pt has been asleep since midnight.
[2016-08-16 05:55] LABS: BASOPHILS % (AUTO) 0.2 % (0-3); EOSINOPHILS % (AUTO) 2.4 % (0-5); MONOCYTES % (AUTO) 6.7 % (4-12); Mean Corpuscular Hemoglobin 30.9 pg (27.0-35.0); Mean Corpuscular Volume 95.9 fL (81-100); NEUTROPHILS % (AUTO) 57.3 % (40-74); Platelet Count 330 bil/L (150-400)
[2016-08-16 06:09] LABS: INR 0.95 ratio
[2016-08-16 07:07] LABS: Magnesium 1.8 mg/dL (1.6-2.6)
[2016-08-16] MEDS: Pantoprazole 40 mg ER24 Tablet PO SCH (07:30)
[2016-08-16] MEDS: Heparin 5,000 Unit/mL Inj SUBQ SCH ×2 (08:30→18:51)
[2016-08-16] MEDS: predniSONE 20 mg Tablet PO SCH (08:36)
--- NOTE | 2016-08-16 13:55 | PROG NOTE ---
[address] [address] PROGRESS NOTE PATIENT: STEVEN DICKINSON : 1950 MR#: [id number] ADMIT: 08/13/2016 JOB ID: [id number] DATE: 08/16/2016 INFECTIOUS DISEASE FOLLOW UP NOTE: REASON FOR FOLLOWUP: Probable hypersensitivity pneumonitis, rule out infection. INTERVAL HISTORY: Overnight, the patient reports she has been feeling quite well except for her ongoing shortness of breath with exertion. She has no fevers, chills, or productive cough but rather is just short of breath with exertion. She thinks she may be a little bit better but not much as compared to when she entered the hospital now 3-1/2 days ago. PHYSICAL EXAMINATION: Reveals an afebrile woman in no acute distress. Temperature 36.3, pulse 81, respiratory rate 20, blood pressure 116/75. She is saturating well on 2 L. Examination of the oral cavity unremarkable. Lungs with very few faint crackles at the bases but surprisingly clear. Cardiac tones without change. Abdomen benign. No skin rash. LABORATORIES: Include a white count of 8200 with completely normal differential. Creatinine 1.05. BNP 1100. Angiotensin-converting enzyme is pending. Procalcitonin is negative IgE 33. Starr C and crypto studies are pending. Histo antigen also pending. HIV pending. Aspergillus antibodies pending but they were negative in clinic fairly recently. QuantiFERON Gold pending. Respiratory viral PCR study negative. Chest x-ray shows decreased bilateral interstitial opacities. IMPRESSION: As was discussed in our original consult yesterday, I did not think this represents an infectious process. A workup by Dr. Lantigua included some studies for fungal and other unusual causes of pulmonary infection which were negative and as was a bronchoscopy with cultures done a couple months ago. Overall I think most likely the patient has hypersensitivity pneumonitis. RECOMMENDATIONS: 1. No antibiotics. 2. We await the HIV and many pending serologic studies which are pending. 3. I agree with the lung biopsy which has been ordered for today. Dr. Lantigua called me this morning to make certain that I do not think that was an obvious infectious cause which would make the lung biopsy unnecessary, but I do not see such a diagnosis and think it is very reasonable to proceed with a definitive study. [facility]
[2016-08-16] MEDS ORDERED: fentaNYL-PF 50 mCg/mL 2 mL Inj ONE (14:53)
--- NOTE | 2016-08-16 15:23 | NUR ---
Off floor Pt off floor at 1513 for procedure. Addendum: 08/16/16 at 1837 by HARIS LOWRY RN Pt back from procedure at this time. Report received from Varsha CONTRERAS.
[2016-08-16] MEDS ORDERED: Lactated Ringer's 500 ML IV PRN (15:25)
[2016-08-16] MEDS ORDERED: Dexamethasone 4 mg/mL Inj IVPUSH PRN (15:25)
[2016-08-16] MEDS ORDERED: Lactated Ringer's 1,000 ML IV SCH (15:25)
[2016-08-16] MEDS ORDERED: Ondansetron 2 mg/mL 2 mL Inj IVPUSH PRN (15:25)
[2016-08-16] MEDS ORDERED: MetoCLOpramide 5 mg/mL 2 mL Inj IVPUSH PRN (15:25)
[2016-08-16] MEDS ORDERED: Phenylephrine 10,000 mCg/mL Inj IVPUSH PRN (15:25)
[2016-08-16] MEDS ORDERED: EPHEDrine Sulfate 50 mg/mL Inj IVPUSH PRN (15:25)
--- NOTE | 2016-08-16 15:25 | PCM.HPANE ---
Patient Data Surgeon Admitting Provider:Leland Carter MD Attending Provider:Leland Carter MD Primary Care Physician:Vira Coker Other Provider: Reason for Visit Hypoxia HYPOXIA Ht/WT & BMI Height (Feet): 5 Height (Inches): 4.00 Weight (Kilograms): 69.100 Body Mass Index 26.01 Allergies Coded Allergies: No Known Allergies (Unverified , 08/10/16) Past Anesthesia History Anesthesia History: Denies:: Abnormal Airway, Anesthesia Reactions, Difficult Intubation, Fam Anesthesia Reaction, Fam Malignant Hypertherm, Malignant Hyperthermia Diabetes History Hx Diabetes?: No MRSA MRSA: No Medications Hypertension Medication: No Reported Medications Bupropion 75 Mg Hcolpq267 Mg PO QAM Ref 0 08/13/16 Valacyclovir 500 Mg Kenxyl114 Mg PO HS 08/13/16 Gabapentin 300 Mg Bdduuie912 Mg PO HS Ref 0 08/13/16 Cholecalciferol (Vitamin D3) (Vitamin D3)3,000 Unit Tablet2,000-3,000 Unit PO DAILY 06/08/16 Multivitamin (Multivitamins)1 Each Capsule1 Each PO 06/08/16 Levothyroxine (Levoxyl)50 Mcg Yxazyl07 Mcg PO DAILY Ref 0 06/08/16 Estradiol 0.5 Mg Tablet0.5 Mg PO DAILY 06/08/16 Discontinued Reported Medications Fluticasone Propionate (Flovent HFA 110 mcg)12 Gm Aer.w.adap1 Puff IH BID #12 GM Ref 0 08/10/16 Valacyclovir 500 Mg Bfmllv301 Mg PO DAILY 06/08/16 Gabapentin 100 Mg Vwisjnm701 Mg PO TID 30 Days Ref 0 06/08/16 Bupropion HCl (Zyban)150 Mg Tablet.er75 Mg PO DAILY 06/08/16 Albuterol HFA (Proair HFA)8.5 Gm Hfa.aer.ad2 Puffs INHALATION Q4H #1 INHALER 06/08/16 Magnesium Amino Acid Chelate (Magnesium)100 Mg Nnsmtk980 Mg PO BID 06/09/16 History History of ENT Problems?: Yes HEENT History: Positive for:: Cataracts Sinus Problem (S/P SINUS/SEPTOPLASTY) Denies:: Abnormal Airway Difficult Intubation Dysphagia Glaucoma Hearing Problem Other HEENT Pertinent History: S/P TONSILLECTOMY Hx of Heart Problems?: Yes Cardiovascular History: Positive for:: Heart Murmur (ECHO 02/2016 EF 60-65%) Valvular Heart Disease (MILD AR/AORTIC SCLEROSIS) Denies:: AICD Cardiac Surgery Chest Pain Congestive Heart Failure Edema Hypertension Pacemaker Hx of Respiratory Problem?: Yes Respiratory History: Positive for:: Asthma Cough (SEES DR. Doni ZAMARRIPA/PULMONOLOGY PULM NOTE/PFT'S 12/2015, 04/2016) Dyspnea Pneumonia (HX "GROUND GLASS" PNEUMONITIS) Denies:: COPD (INTERSTITIAL PULMONARY DISEASE=CURRENT PROBLEM) Chest Surgery (S/P BRONCHOSCOPY/LUNG BX) Emphysema Hemoptysis Tuberculosis Use of C-PAP Machine Hx Neurologic Problems?: Yes Neurological History: Denies:: CVA Dementia Hx of GI Problems?: Yes Gastrointestinal History: Positive for:: Heartburn (HX PUD) Denies:: Diverticulitis Gastroesphageal Reflux Gastrointestinal Bleeding Hepatitis Hiatal Hernia Rectal Bleeding Other GI Pertinent History: HX IBS S/P APPY Hx of Problems?: No Genitourinary History: Denies:: Kidney Stones Urinary Tract Infection Female Hx: Denies:: Currently Pelvic Inflammatory (HX GENITAL HERPES) Skin History: Denies:: History Skin Disorders? Pressure Ulcers Hx Musculoskeletal Problems?: Yes Musculoskeletal History: Positive for:: Back Injury (S/P back sx) Hx of Psycho/Social Problems?: Yes Psycho Social History: Positive for:: Anxiety Hx Depression Hx Surgeries?: Yes (HYST/BSO,SINUS/SEPTOPLASTY,SPINE X2,BRONCHOSCOPY,APPY) Hx Any Other Health Problems?: Yes Other History: Positive for:: Thyroid Disease Denies:: Cancer Endocrine Disease Hospitalization Hx Diabetes: No Hx Alcohol Use: NoHx Substance Use: No Smoking Status: Never Smoker Have You Smoked inLast 12 mo: No Stop/Bang Treated for Sleep Apnea?: No Do You Have a CPAP Machine?: No S-Snoring: Do You Snore Loudly: No T-Tired: feel tired, fatigued: No O-Obsered: Observed not breath: No P-Blood Pressure: treated: No B- Body Mass Index > 35 kg/m2: No A- Age over 50: Yes N- Neck Large Circumference: No G- Gender Male: No ANTIONETTE Total Score: 0 ANTIONETTE Risk Assessment: Low Risk, <3 Yes Risk Assessment Category Category 1A: Patient has history of documented sleep apnea, and HAS NOT received any narcotic, sedative or anesthesia administration during this stay. Category 1B: Patient has history of documented sleep apnea, and HAS received any narcotic , sedative or anesthesia administration during this stay Category 2: Patient has SUSPECTED Obstructive Sleep Apnea, and HAS received any narcotic , sedative or anesthesia administration during this stay. Category 3: Patient has SUSPECTED Obstructive Sleep Apnea and HAS NOT received narcotic, sedative or anesthesia administration during this stay. Category 4: Outpatient in Procedural Areas with known sleep apnea or who screen positive for High Risk via the STOP/BANG questionnaire. Exam Exam Vital Signs Vital Signs Date Time Temp Pulse Resp B/P Pulse Ox O2 Delivery O2 Flow Rate FiO2 08/16/16 12:46 36.3 81 20 116/75 95 Nasal Cannula 2.00 08/16/16 08:42 Supplement Oxygen 08/16/16 08:32 36.5 96 19 132/88 99 Nasal Cannula 2.00 08/16/16 07:53 75 16 96 Nasal Cannula 2.00 General Appearance: Oriented X3 HEENT/AIRWAY: MP 2 Lungs: Diminished, Coarse Heart: Regular Rate/Rhythm Meds/Labs/Diagnostics Admission Meds Current Medications Lorazepam (Ativan) 1 mg NOW ONCE PO Last administered on 08/15/16t 23:31; Start 08/15/16 at 23:30; Stop 08/15/16 at 23:31; Status DC Labs Test 08/13/16 14:30 08/13/16 14:41 08/13/16 20:36 08/15/16 06:40 Troponin T < 0.010ug/L (0.0-0.011) Hold [place] Top Tube Received (Received) Urine Color Straw (YELLOW) Urine Appearance Clear (CLEAR,HAZY) Urine pH 6.0 (5.0-8.0) Urine Specific [place] 1.005 (1.003-1.035) Urine Protein Negativemg/dL (NEG,TRACE) Urine Glucose (UA) Negativemg/dL (NEGATIVE) Urine Ketones Negativemg/dL (NEGATIVE) Urine Occult Blood Negative (NEGATIVE) Urine Nitrite Negative (NEGATIVE) Urine Bilirubin Negative (NEGATIVE) Urine Urobilinogen Normalmg/dL (NORMAL) Urine Leukocyte Esterase Negative (NEGATIVE) Urine RBC 0-2/hpf (0-2) Urine WBC 0-5/hpf (0-5) Urine Epithelial Cells Few/hpf (NONE-MOD) Urine Crystals None seen (NONE SEEN) Urine Bacteria None/hpf (NONE-FEW) Urine Hyaline Casts None/lpf (NONE) Urine Granular Casts None seen (NONE SEEN) Urine Waxy Casts None seen (NONE SEEN) Urine Red Blood Cell Casts None seen (NONE SEEN) Urine White Blood Cell Casts None seen (NONE SEEN) Urine Mucus None seen (None Seen) Urine Trichomonas None seen (NONE SEEN) Urine Yeast None (NONE SEEN) Urine Culture Reflexed Not indicated Erythrocyte Sedimentation Rate 36mm/hr (0-40) C-Reactive Protein 6.3mg/dL (0.0-0.5) Immunoglobulin E 33IU/mL (0-100) Test 08/16/16 05:40 White Blood Count 8.2th/mm3 (3.8-10.1) Red Blood Count 3.20mil/mm3 (3.90-5.20) Hemoglobin 9.9g/dL (12.0-15.6) Hematocrit 30.7% (35.0-46.0) Mean Corpuscular Volume 95.9fL (81-100) Mean Corpuscular Hemoglobin 30.9pg (27.0-35.0) Mean Corpuscular Hemoglobin Concent 32.2% (32.0-37.0) Red Cell Distribution Width 14.4% (12.3-15.4) Platelet Count 330bil/L (150-400) Neutrophils (%) (Auto) 57.3% (40-74) Lymphocytes (%) (Auto) 33.3% (14-46) Monocytes (%) (Auto) 6.7% (4-12) Eosinophils (%) (Auto) 2.4% (0-5) Basophils (%) (Auto) 0.2% (0-3) Prothrombin Time 10.1sec (8.1-12.5) Prothromb Time International Ratio 0.95ratio Sodium Level 140mEq/L (134-144) Potassium Level 3.7mEq/L (3.5-5.2) Chloride Level 104mEq/L (97-108) Carbon Dioxide Level 24mmol/L (18-29) Blood Urea Nitrogen 19mg/dL (8-27) Creatinine 1.05mg/dL (0.57-1.00) Estimat Glomerular Filtration Rate 75mL/min (>59) Glucose Level 88mg/dL (60-99) Calcium Level 9.5mg/dL (8.5-10.1) Magnesium Level 1.8mg/dL (1.6-2.6) Total Bilirubin 0.3mg/dL (0.0-1.2) Aspartate Amino Transf (AST/SGOT) 23U/L (0-50) Alanine Aminotransferase (ALT/SGPT) 14U/L (0-32) Alkaline Phosphatase 52U/L (25-165) Pro-B-Type Natriuretic Peptide 1117pg/mL (0-301) Total Protein 5.6g/dL (6.4-8.4) Albumin 3.0g/dL (3.4-5.0) Procalcitonin 0.08ng/mL (See Comment) Plan Impression Patient chart reviewed, patient interviewed and anesthestic plan with risks, benefits, and alternatives discussed, and informed consent obtained. ASA Physical Status: ASA3 Severe Disease Anesthetic Support Modalities: Arterial Line Anesthetic Plan: GA Bene/Risks/Altern/Consents: Yes HP Complete Prior to Induction: Yes rToy Peguero MD Aug 16, 2016 15:25
[2016-08-16] MEDS ORDERED: CeFAZolin 2 Gm/50 mL D5W Duplex Bag IV ONE (15:51)
[2016-08-16] MEDS ORDERED: Bupivacaine-MPF 0.5% W/EPI 30 mL Inj INFILTRATE ONE (16:42)
[2016-08-16] MEDS ORDERED: Ketorolac 15 mg/mL Inj IVPUSH PRN (17:15)
[2016-08-16] MEDS ORDERED: Dexamethasone 4 mg/mL Inj ONE (17:30)
[2016-08-16] MEDS ORDERED: Propofol 10,000 mCg/mL 20 mL Inj ONE (17:30)
[2016-08-16] MEDS ORDERED: MetoCLOpramide 5 mg/mL 2 mL Inj ONE (17:30)
[2016-08-16] MEDS ORDERED: Rocuronium 10 mg/mL 5 mL Inj ONE (17:30)
[2016-08-16] MEDS ORDERED: Neostigmine 1 mg/mL 5 mL Inj ONE (17:30)
[2016-08-16] MEDS ORDERED: Glycopyrrolate 0.2 mg/mL 5 mL Inj ONE (17:30)
[2016-08-16] MEDS ORDERED: Ondansetron 2 mg/mL 2 mL Inj ONE (17:30)
--- NOTE | 2016-08-16 17:30 | PCM.SURGOP ---
Surgical Operative Report Date of Service: Aug 16, 2016 Pre Operative Diagnosis Interstitial lung disease Post Operative Diagnosis Same Procedure: Right VATS wedge biopsies of right upper, right middle, and right lower lobes Surgeon and Benefits Counselor: Surgeon: Ravinder Yanez MD Assistants: Lalita Kebede PA-C Indication for Procedure 65-year-old woman who has had increasing exertional dyspnea. CT scan of the chest has shown diffuse centrilobular groundglass opacities. Pulmonary function tests are fairly normal, with an FEV1 of 93% of predicted, and a DLCO of 63% of predicted. She underwent bronchoscopy which did not show any endoluminal lesions, and lavage was negative on cultures. After discussion of risks and benefits, she agreed to proceed with right VATS with wedge biopsies of all 3 lobes. Findings: There were no pleural abnormalities. There was no pleural effusion. There were no discrete masses. All 3 lobes of the right lung had mild to moderate anthracosis, and had some inflammatory changes, most pronounced superiorly. Procedure Details After smooth induction of general endotracheal anesthesia with a double-lumen endotracheal tube, a right radial arterial catheter was placed. She was placed in the left lateral decubitus position, and was prepped and draped in wide sterile fashion. A procedural pause was performed according to the SCOAP checklist, and all were found to be in agreement. Single lung ventilation was employed to the left lung, which she tolerated well. A transverse incision was made on the right lateral chest at the anterior axillary line, at the level of the nipple. The subcutaneous tissue was divided. A hemostat was used to tunnel superior to the rib and entered the right pleural space without difficulty. A finger sweep revealed no adhesions. Camera inspection revealed no adhesions, and that the right chest had been entered safely. There were no pleural abnormalities. There were no masses. There was no pleural effusion. The diaphragm was normal. There was mild to moderate diffuse anthracosis, and mild to moderate inflammatory changes diffusely, most pronounced superiorly. The fissures were well-defined. Two additional port sites were placed under visualization, one in the midaxillary line, and one in the posterior axillary line. Wedge biopsies were then performed of all 3 lobes using the [place] 60 mm stapler, using 2.6 mm drew with Seamguard. Wedge biopsies were obtained from the right lower lobe, right middle lobe, and right upper lobe laterally, using single firings of the [place] 60 mm stapler. There was no bleeding from wedge biopsy sites. Each specimen was sent separately for permanent pathology. The middle lobe specimen was the largest, so a small portion of it was sent separately for culture for fungus and acid-fast bacilli. A 20 Tamazight straight chest tube was positioned through the anterior incision, and directed toward the right apex. It was secured to the skin with a 2-0 nylon stitch. The right lung was then reinflated , and all 3 lobes inflated equally, and the chest tube was in good position. The remaining ports were removed. The incisions were closed using interrupted deep subcutaneous 3-0 Vicryl sutures, and running 4-0 Monocryl subcuticular stitches. Steri-Strips and sterile dressings were applied. The single chest tube was connected to a Pleur-evac to 20 cm of water suction. There was a small air leak. At the end of the case all needle and sponge counts were correct 2. The patient was awakened from anesthesia without difficulty, and taken to the recovery room in satisfactory condition, having tolerated the procedure well. Complications There were no periprocedural complications identified. Surgical Specimen Removed: Yes Specimen sent to Pathology: Yes Surgical Specimen description: Right lower lobe wedge biopsy. Right middle lobe wedge biopsy. Right upper lobe wedge biopsy. Anesthetic Plan: GA Grafts, Implants: None Output, Estimated Blood Loss: 5 Blood Administration during catherine: No Drains: None Catheters: None copies to: Vira Coker; Suni Lantigua MD, Joshua D MD Aug 16, 2016 17:30
[2016-08-16] MEDS: fentaNYL-PF 50 mCg/mL 2 mL Inj IVPUSH PRN ×3 (17:35→17:55)
[2016-08-16] MEDS: HYDROmorphone 1 mg/mL Inj IVPUSH PRN ×3 (17:42→18:22)
--- NOTE | 2016-08-16 17:46 | PCM.ANEP2 ---
Post Anesthesia Evaluation ASA/CMS Post Anesthesia VS in Patient's Normal Range?: Yes Resp Stable; Airway Patent?: Yes CV Function & Hydration Stable: Yes Mental Status Recovered?: Yes Pain control Satisfactory?: Yes N/V Control Satisfactory?: Yes Troy Peguero MD Aug 16, 2016 17:46
--- NOTE | 2016-08-16 17:46 | PCM.ANEP1 ---
Post Anesthesia Phase 1 PACU Phase 1 Assessment Date of Service: Aug 16, 2016 Vital Signs Vital Signs Date Time Temp Pulse Resp B/P Pulse Ox O2 Delivery O2 Flow Rate FiO2 08/16/16 17:40 67 17 114/62 100 Simple Mask 8 08/16/16 17:35 70 17 111/65 100 Simple Mask 8 08/16/16 17:30 36. 79 17 94/76 100 Simple Mask 8 08/16/16 17:29 75 08/16/16 12:46 36.3 81 20 116/75 95 Nasal Cannula 2.00 Anesthetic Administered: GA Level of Alertness: Awake, talking Pain: Yes Lungs: Diminished, Coarse Troy Peguero MD Aug 16, 2016 17:46
--- NOTE | 2016-08-16 18:06 | DRSVH ---
PROCEDURE: X-RAY CHEST ONE VIEW, PORTABLE ([id number]) INDICATIONS: evaluate chest tube TECHNIQUE: One view of the chest was acquired. COMPARISON: [facility], CR, XR CHEST 2VW, 08/15/2016, 9:21. FINDINGS: Surgical changes and devices: Right-sided chest tube is present, tip of which projects over the right upper lung. Lungs and pleura: No pleural effusions or pneumothorax. Lung volumes are low. Bilateral mid and lowe r lung patchy airspace opacities present. Mediastinum: Mediastinal contours appear normal. Heart size is normal. Bones and chest wall: No suspicious bony lesions. Overlying soft tissues appear unremarkable. IMPRESSION: 1. Low lung volumes with bilateral atelectasis versus pneumonia. Dictated by: Barbara Askew M.D. on 08/16/2016 at 18:04 Approved by: Barbara Askew M.D. on 08/16/2016 at 18:04
[2016-08-17] VITALS (9 sets, daily range): BP systolic 98–131; BP diastolic 62–77; PULSE 70–86; RESP 16–22; O2SAT 91–97
--- NOTE | 2016-08-17 00:19 | PCM.PNMED ---
Subjective Date of Service Aug 17, 2016 Subjective Patient was seen after her surgery. She is somewhat groggy but feels well. Her pain is well controlled. Exam Vital Signs Vital Sign - Last Date Time Temp Pulse Resp B/P Pulse Ox O2 Delivery O2 Flow Rate FiO2 08/16/16 20:00 81 08/16/16 19:05 36.7 18 108/59 96 Nasal Cannula 2.00 Intake and Output 08/16/16 08/16/16 08/17/16 Cumulative From/Thru 15:00 23:00 07:00 08/10/16 14:48 - 08/16/16 18:06 Intake Total 433 ml 550 ml 6671 ml Output Total 1000 ml 1605 ml 8170 ml Balance -567 ml -1055 ml -1499 ml Intake Oral 433 ml 0 ml 5221 ml IV Total 550 ml 1450 ml Output Urine Total 1000 ml 1600 ml 8165 ml Estimated Blood Loss 5 ml 5 ml # Bowel Movements 2 Exam General: Patient is lying supine in bed postop and is comfortable. She appears somewhat groggy. She is in no apparent distress with oxygen HEENT: Head is atraumatic normocephalic. Eyes: Pupils are equally round and reactive to light and accommodation. Extraocular muscles are intact. Sclera are white anicteric. Subconjunctival mucosa is pink. Ears and nose are unremarkable. Oropharynx: There is no mucosal lesions, there is no thrush, there is no pharyngitis. Neck: Is supple, there are no nodes, or masses or tenderness. Chest: Is significant for decreased breath sounds at the bases. There is a chest tube on the right with minimal drainage. There are no rales, rhonchi, wheezes or rubs. Heart: Rate, rhythm is regular. There is no murmur, rub or gallop. Abdomen: Good bowel sounds are present. Abdomen is soft, nontender, no organomegaly or masses were appreciated. Extremities: Are symmetrical and well perfused. There is no edema, there is no cellulitis, no rash. Neurologic: There are no focal neurological deficits. Cranial nerves II through XII are intact. There are no sensory or motor deficits. Psychiatric: Patients mood is calm and shows no sign of agitation. Genital: Deferred Rectal: Deferred Lab and Diagnostics Result Diagram: 08/16/1640 08/16/16539 Microbiology Name: STEVEN DICKINSON Age/Sex: 65/F Attend Dr: Suni Lantigua MD Acct: [id number] Unit: [id number] Status: [facility] [place] Location: END Re06/09/16 Disch: Specimen: [id number] Collected: 06/09/16 Status: JELENA Req#: [id number] Received: 06/09/16 Source: [facility] Sp Desc : Subm Dr: Suni Lantigua MD Ordered: LEGION DFA&CULT, AFB CULT & SMR Procedure Result Verified Site Microbiology LEGIONELLA DFA Final 06/21/161307 LCB Negative Reference Range: Negative * This is a corrected result. * A prior result that was reported as final has been changed. LEGIONELLA CULTURE Final 06/21/161307 LCB Final report LEGIONELLA SP CULT RESULT 1 Final 06/21/161307 LCB Comment Culture Report: No Legionella species isolated. Performed at: [address] [id number] Manager Transport: Prakash Mcclain MD, Phone: [phone] AFB SPECIMEN PROCESSING Final 07/26/161207 L[facility] Concentration ACID FAST SMEAR Final 07/26/161207 LCB Negative * This is a corrected result. * A prior result that was reported as final has been changed. ACID FAST CULTURE Final 07/26/161207 LCB Negative CONTINUED ON NEXT PAGE RUN DATE: 07/26/16 [facility] LIVE PAGE 2 RUN TIME: 1208 Specimen Inquiry PHYSICIAN Patient: STEVEN DICKINSON [id number] (Continued) Specimen: [id number] Collected: 06/09/16-1225 Received: 06/09/164028 (Continued) Procedure Result Verified Site ACID FAST CULTURE Final (continued) 07/26/16-1208 No acid fast bacilli isolated after 6 weeks. Performed at: [address] [id number] Manager Transport: Eros Day MD, Phone: [phone] X-Rays, CTs and MRIs PROCEDURE: CT ANGIO CHEST PULMONARY EMBOLISM ([id number]) INDICATIONS: Tachycardia, hypoxia, shortness of breath. TECHNIQUE: After the administration of intravenous contrast, 2 mm thick sections acquired from the pulmonary apices to the posterior costophrenic angles. 3-dimensional maximum intensity projection (MIP) coronal and sagittal reformats were then acquired through the thorax. For radiation dose reduction, the following was used: automated exposure control, adjustment of mA and/or kV according to patient size. COMPARISON: [facility], CT, CT CHEST HIGH RESOLUTION, 05/12/2016, 13:51. [facility], CT, CT CHEST WO CON, 03/14/2016, 11:10. FINDINGS: Image quality: Excellent. Pulmonary arteries: Pulmonary arteries are normal in size, and demonstrate no intraluminal filling defects to suggest central pulmonary embolism. Lungs and pleura: There are diffuse bilateral groundglass opacities with a centrilobular distribution which appear increased from the prior studies. No pleural effusions or pneumothorax. No acute consolidation. Central and peripheral airways are patent. Mediastinum: Heart size is normal, without pericardial effusion. There are mildly prominent mediastinal and hilar lymph nodes redemonstrated. There is aneurysmal dilatation of ascending thoracic aorta measuring up to approximately 4.3 cm, stable from the prior study. There is mild concentric wall thickening of the esophagus. Bones and chest wall: No suspicious bony lesions. Ribs and thoracic spine appear intact throughout. Thyroid gland demonstrates no discrete nodules. No axillary or supraclavicular adenopathy. Abdomen: Visualized upper abdominal solid organs appear normal in the early arterial phase of enhancement. IMPRESSION: 1. No evidence of pulmonary embolism. 2. Progressive increase in diffuse bilateral groundglass nodules which again likely represent hypersensitivity pneumonitis. Dictated by: Eros Boyle M.D. on 08/13/2016 at 16:41 Approved by: Eros Boyle M.D. on 08/13/2016 at 16:41 Cardiac Echo Impressions Echocardiogram Report Name: STEVEN DICKINSON AStudy Date: 03/14/2016 Height: 64 in Hospital Exam Location: [facility] Weight: 174 lb Gender: Female BSA: 1.8 m2 : 1950 Age: 65 yrs BP: 127/82 mmHg Reason For Study: SOB Ordering Physician: Lea Smith Performed By: Nicolasa Nixon Referring Physician: RYAN Coker Interpretation Summary Left ventricular wall thickness is borderline increased. The ejection fraction is estimated to be 60-65%. Spectral Doppler of the mitral valve is reversed, with an E/A wave ratio < 1.0. There is mild aortic regurgitation. There is mild aortic valve sclerosis. The right ventricular systolic pressure is estimated at 29 mmHg assuming a right atrial pressure of 3 mm Hg. Echocardiogram Report Name: STEVEN DICKINSON AStudy Date: 08/15/2016 Height : 64 in Hospital Exam Location: [facility] Weight : 152 lb Gender: Female BSA: 1 .7 m2 : 1950 Age: 65 yrs BP: 11 3/71 mmHg Reason For Study: New Murmur Ordering Physician: EMETERIO GOMEZ EPerformed By: Eusebio Campos Referring Physician: EMETERIO GOMEZ Interpretation Summary The left ventricle is normal in size. Left ventricular systolic function is normal. AR by color doppler appears to be mild to moderate however increasing AR slope and decreasing PHT suggest worsening of AI especially with diastolic reversal in aorta, consider KAREN to evaluate AV. There is mild tricuspid regurgitation. The right ventricular systolic pressure is estimated at 43 mmHg assuming a right atrial pressure of 3 mm Hg. Compared to the prior echo exam, there has been an increase in the severity of pulmonary hypertension. Assessment & Plan 65 year old female with a history of hypothyroidism, depression admitted for worsening shortness of breath likely interstitial pneumonitis. Acute on chronic respiratory failure with hypoxia. 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 She did not require oxygen during that time. She is now hypoxic with any exertion. I got her up from her bed with room air to walk into the hallway and her O2 saturation dropped to 85% this was witnessed by her nurse Ysabel. - Patient has been following Dr. Lantigua for pulmonary care. A lung biopsy was performed today. Results are pending..Wedge biopsies were obtained from the right lower lobe, right middle lobe, and right upper lobe laterally, using single firings of the [place] 60 mm stapler. There was no bleeding from wedge biopsy sites. Each specimen was sent separately for permanent pathology. The middle lobe specimen was the largest, so a small portion of it was sent separately for culture for fungus and acid-fast bacilli. - CTA chest revealed: Progressive increase in diffuse bilateral groundglass nodules. - Will continue on azithromycin and oral prednisone as patient is subjectively improved. Lasix was also given yesterday 1 - Pulmonology evaluation to follow when Dr. Lantigua is available -Check respiratory virus PCR screen -Dr. Bernardo of infectious disease has been consulted and his impression and plan are as follows: IMPRESSION: As was discussed in our original consult yesterday, I did not think this represents an infectious process. A workup by Dr. Lantigua included some studies for fungal and other unusual causes of pulmonary infection which were negative and as was a bronchoscopy with cultures done a couple months ago. Overall I think most likely the patient has hypersensitivity pneumonitis. RECOMMENDATIONS: 1. No antibiotics. 2. We await the HIV and many pending serologic studies which are pending. 3. I agree with the lung biopsy which has been ordered for today. Dr. Lantigua called me this morning to make certain that I do not think that was an obvious infectious cause which would make the lung biopsy unnecessary, but I do not see such a diagnosis and think it is very reasonable to proceed with a definitive study. -We will therefore discontinue azithromycin. Check final culture and pathology results of lung biopsy as mentioned above. Hypothyroidism - Will continue home medication synthroid 50 mcg daily Depression - Will continue Wellbutrin 75 mg daily Mild leukocytosis - Likely reactive to to interstitial pneumonitis. Could be due to bilateral interstitial pneumonia - Will continue azithromycin Hyponatremia - Na: 131 - Will continue gentle IV hydration - Will continue to monitor Discussed with patient at bedside and she agrees with the above plan. GI ppx: PPI DVT ppx: Heparin Anti emetics and analgesics as per protocol. Disposition: To be determined by her clinical course after her video-assisted thorascopic surgery with lung biopsy. Pain Evaluation: Adequate Pain Control GI Prophylaxis: Proton Pump Inhibitor VTE Prophylaxis: Sub-Q Heparin (Unfractionated) Resuscitation Status: CPR: Attempt Resuscitation MegEmeterio MD Aug 17, 2016 00:19
[2016-08-17] MEDS: Heparin 5,000 Unit/mL Inj SUBQ SCH ×4 (00:30→23:58)
[2016-08-17] MEDS: HYDROmorphone 0.5 mg/0.5 mL iSecure Syringe IVPUSH PRN ×2 (01:07→12:20)
--- NOTE | 2016-08-17 06:18 | NUR ---
CT/pain R lat chest dressing reinforced with bioclusive dressing due to small air leak. had 31mL of serosang drainage this shift. Lung sounds slightly coarse to mid and lower lobes; good air movement. Oxycodone given for chest/incision pain with good relief. Dilaudid given for breakthrough pain.
[2016-08-17 06:24] LABS: BASOPHILS % (AUTO) 0.1 % (0-3); EOSINOPHILS % (AUTO) 0 % (0-5); MONOCYTES % (AUTO) 7.6 % (4-12); Mean Corpuscular Hemoglobin 31.6 pg (27.0-35.0); Mean Corpuscular Volume 96.8 fL (81-100); NEUTROPHILS % (AUTO) 79.2 % (40-74); Platelet Count 395 bil/L (150-400)
[2016-08-17] MEDS: Pantoprazole 40 mg ER24 Tablet PO SCH (09:41)
[2016-08-17] MEDS: predniSONE 20 mg Tablet PO SCH (09:43)
--- NOTE | 2016-08-17 10:00 | DRSVH ---
PROCEDURE: X-RAY CHEST ONE VIEW, PORTABLE ([id number]) INDICATIONS: evaluate chest tube, s/p R VATS TECHNIQUE: One view of the chest was acquired. COMPARISON: [facility], CR, CHEST 2 VIEW, 12/15/2015, 17:28. [facility], CR, XR ANTHONY ST 1VW (PORTABLE), 08/16/2016, 17:45. FINDINGS: Surgical changes and devices: Right-sided chest tube is present, tip of which projects over the right upper lung. Lungs and pleura: No pleural effusions or pneumothorax. Lung volumes are low. Bilateral mid and lowe r lung patchy airspace opacities present. Mediastinum: Mediastinal contours appear normal. Heart size is normal. Bones and chest wall: No suspicious bony lesions. Overlying soft tissues appear unremarkable. IMPRESSION: 1. Stable position of right pleural drain and no definitive pneumothorax. 2. Persistent low lung volumes with bilateral atelectasis versus pneumonia similar to prior exam. Dictated by: Suhas Plata RRA Interpreted: Ashley Martinez MD on 08/17/2016 at 10:00 Transcribed by: COLLIN on 08/17/2016 at 10:00 Approved by: Ashley Martinez MD, PhD on 08/17/2016 at 16:56
--- NOTE | 2016-08-17 10:15 | PROG NOTE ---
[address] [address] PROGRESS NOTE PATIENT: STEVEN DICKINSON : 1950 MR#: [id number] ADMIT: 08/13/2016 JOB ID: [id number] DATE: 08/17/2016 INFECTIOUS DISEASE FOLLOWUP NOTE: REASON FOR FOLLOWUP: Interstitial infiltrates of unknown etiology. INTERVAL HISTORY: Yesterday, the patient underwent the lung biopsy, which was performed by Dr. Yanez. She tolerated the procedure quite well, though she does have some expected pain around the right-sided chest tube. An x-ray is pending today to see if the chest tube can be pulled. She is having no fevers, chills, or sweats. She does not have a productive cough. PHYSICAL EXAMINATION: Reveals an afebrile woman with temp 36.7. Pulse 74, respiratory rate 16, blood pressure 98/62. She is saturating well on 2 L. Examination of the oral cavity unremarkable. Lungs with a few crackles but really unchanged. Chest tube present on the right. Abdomen negative. LABORATORIES: Include a white count of 11,000, 79% segs but, of course, this is following chest tube placement and lung biopsy. Creatinine 1.17. LFT are normal. Procalcitonin negative x3. Angiotensin converting enzyme pending. Starr C antibody, crypto antigen, histo antigen, aspergillus antibodies and QuantiFERON Gold pending. IgE normal at 33. No new micro is available. Tissue from lung biopsy is currently pending, and it has been sent both for culture and for histopath. A repeat chest x-ray was just done and is pending. IMPRESSION: This patient is doing well, status post lung biopsy. There is little indication that she has a bacterial process ongoing here, and we await studies looking at the possibility of fungal or mycobacterial disease. RECOMMENDATIONS: 1. I agree with discontinuing the patient's azithromycin, as she has received a full course. 2. The patient can be discharged at any time from an infectious disease point of view. She should continue on the Valtrex, which she is on chronically for suppression of genital herpes. 3. Follow up in the Infectious Disease Clinic will be good dependent on whether not an infectious etiology is identified in the lung biopsies and/or pending serologies. 4. Infectious Disease will sign off at this time.
[2016-08-17] MEDS ORDERED: Bacitracin Ointment Packet TOPICAL STA (11:25)
--- NOTE | 2016-08-17 11:39 | NUR ---
Meds Pt refused Heparin does not want IV Per Delio BEARD) flushed IV access with saline. IV's patent, flushing freely Addendum: 08/17/16 at 1144 by RAJIV LUONG When ambulating to bedside commode, Pt SOB. Able to breath better upon returning to bed
--- NOTE | 2016-08-17 11:42 | PROG NOTE ---
[address] [address] PROGRESS NOTE PATIENT: STEVEN DICKINSON : 1950 MR#: [id number] ADMIT: 08/13/2016 JOB ID: [id number] DATE: 08/17/2016 SUBJECTIVE: The patient is seen in followup. She had a pretty good night all things considered. She has an appropriate amount of pain which is fairly well controlled. She has not had a significant cough over night. She has no nausea. OBJECTIVE: Temperature 36.7, pulse 80, blood pressure 98/62, saturation 97% on 2 liters. General: She is sitting up in bed, in no acute distress. Chest: She has good air movement bilaterally with no significant crackles or rhonchi. Her incisions are clean with no erythema. The chest tube site is intact. There is no air leak. Chest tube output overnight was 31 cc, serosanguineous. LABORATORIES: White count is 11.3, hematocrit 33.4, platelets 395. Creatinine 1.17. Glucose 92. Procalcitonin 0.08. IMAGING: A chest x-ray this morning shows no pneumothorax, no pleural effusion. There are persistent low lung volumes with bibasilar atelectasis versus pneumonia. ASSESSMENT AND PLAN: A 65-year-old woman postoperative day one, status post right VATS with wedge biopsies of all three right lung lobes for interstitial lung disease. Her chest tube will be removed today. From a surgical standpoint, I think she can be discharged to home today after her chest tube is removed. Her overall plans will be left up to the hospitalist service. She will follow up in surgery clinic in 10-14 days for a wound check and I will call her personally when pathology results are available.
--- NOTE | 2016-08-17 12:15 | NUR ---
Social Work-readiness for discharge: Data:EMR Reviewed. Pt is on day 4 of hospitalization for hypoxia per H&P. Pt is not medically stable at this time. Pt has lung biopsy completed yesterday. Pt plans to return home with her daughter at discharge, SW confirmed plan with pt. Per RN notes, pt has been up independent in her room. No discharge needs identified. All updated and agreeable to plan. Assessment:Pt who is independent at baseline. Plan:Pt to discharge home when medically stable via POV. No discharge needs identified. All updated and agreeable to plan. CYNDY Quintanilla
--- NOTE | 2016-08-17 16:56 | NUR ---
Chest Tube R lobe biopsies 08/16/16, chest tube to water seal Provider DC'd chest tube approx [id number], pre medicated with IV Dilaudid Maintaining O2 stats, 1L nasal canula with METAL CUT OFF SAW TENDER, minimal pain controlled well with oxycodone 5 mg q4, incentive spirometer at bedside, consult by RT Making know appropriately with call light
[2016-08-17] MEDS: Codeine-guaiFENesin 10 mL Syrup PO PRN (22:58)
[2016-08-18] VITALS (7 sets, daily range): BP systolic 105–138; BP diastolic 67–86; PULSE 71–99; RESP 16–22; O2SAT 94–95
--- NOTE | 2016-08-18 | PCM.PNMED ---
Subjective Date of Service Aug 17, 2016 Subjective Patient is in good spirits day. She had her chest tube out and she stated that it did not cause her any discomfort. She is in no respiratory distress and her pain is controlled. Exam Vital Signs Vital Sign - Last Date Time Temp Pulse Resp B/P Pulse Ox O2 Delivery O2 Flow Rate FiO2 08/17/16 19:46 37.0 77 20 131/77 93 Nasal Cannula 1.00 Intake and Output 08/16/16 08/16/16 08/17/16 Cumulative From/Thru 15:00 23:00 07:00 08/10/16 14:48 - 08/17/16 06:55 Intake Total 433 ml 550 ml 300 ml 6971 ml Output Total 1000 ml 1605 ml 231 ml 8401 ml Balance -567 ml -1055 ml 69 ml -1430 ml Intake Oral 433 ml 0 ml 300 ml 5521 ml IV Total 550 ml 1450 ml Output Urine Total 1000 ml 1600 ml 200 ml 8365 ml Drainage Total 31 ml 31 ml Estimated Blood Loss 5 ml 5 ml # Bowel Movements 2 Exam General: Patient is lying supine in bed postop and is comfortable. She is much more awake and alert today. She has no significant discomfort. She is on 1 L of oxygen per nasal cannula HEENT: Head is atraumatic normocephalic. Eyes: Pupils are equally round and reactive to light and accommodation. Extraocular muscles are intact. Sclera are white anicteric. Subconjunctival mucosa is pink. Ears and nose are unremarkable. Oropharynx: There is no mucosal lesions, there is no thrush, there is no pharyngitis. Neck: Is supple, there are no nodes, or masses or tenderness. Chest: Is significant for decreased breath sounds at the bases. However, the lungs are much clearer today. The chest tube has been removed. There are no significant rales, rhonchi, wheezes or rubs. Heart: Rate, rhythm is regular. There is no murmur, rub or gallop. Abdomen: Good bowel sounds are present. Abdomen is soft, nontender, no organomegaly or masses were appreciated. Extremities: Are symmetrical and well perfused. There is no edema, there is no cellulitis, no rash. Neurologic: There are no focal neurological deficits. Cranial nerves II through XII are intact. There are no sensory or motor deficits. Psychiatric: Patients mood is calm and shows no sign of agitation. Genital: Deferred Rectal: Deferred Lab and Diagnostics Result Diagram: 08/17/1654108/17/16541 Microbiology Name: STEVEN DICKINSON Age/Sex: 65/F Attend Dr: Suni Lantigua MD Acct: [id number] Unit: [id number] Status: [facility] Location: END Re06/09/16 Disch: Specimen: [id number] Collected: 06/09/16-1224 Status: COMP Req#: [id number] Received: 06/09/16 Source: [facility] Sp Desc : Subm Dr: Suni Lantigua MD Ordered: LEGION DFA&CULT, AFB CULT & SMR Procedure Result Verified Site Microbiology LEGIONELLA DFA Final 06/21/16- 1308 LCB Negative Reference Range: Negative * This is a corrected result. * A prior result that was reported as final has been changed. LEGIONELLA CULTURE Final 06/21/161307 LCB Final report LEGIONELLA SP CULT RESULT 1 Final 06/21/161307 LCB Comment Culture Report: No Legionella species isolated. Performed at: [address] [id number] Facilities Operator: Prakash Mcclain MD, Phone: [phone] AFB SPECIMEN PROCESSING Final 07/26/16- 1207 L[facility] Concentration ACID FAST SMEAR Final 07/26/161207 LCB Negative * This is a corrected result. * A prior result that was reported as final has been changed. ACID FAST CULTURE Final 07/26/161207 LCB Negative CONTINUED ON NEXT PAGE RUN DATE: 07/26/[address] [facility] LIVE PAGE 2 RUN TIME: 1208 Specimen Inquiry PHYSICIAN Patient: TEENASTEVEN Scott [id number] (Continued) Specimen: [id number] Collected: 06/09/16-1225 Received: 06/09/16-1339 (Continued) Procedure Result Verified Site ACID FAST CULTURE Final (continued) 07/26/16-1208 No acid fast bacilli isolated after 6 weeks. Performed at: [address] [id number] Facilities Operator: Eros Day MD, Phone: [phone] X-Rays, CTs and MRIs PROCEDURE: CT ANGIO CHEST PULMONARY EMBOLISM ([id number]) INDICATIONS: Tachycardia, hypoxia, shortness of breath. TECHNIQUE: After the administration of intravenous contrast, 2 mm thick sections acquired from the pulmonary apices to the posterior costophrenic angles. 3-dimensional maximum intensity projection (MIP) coronal and sagittal reformats were then acquired through the thorax. For radiation dose reduction, the following was used: automated exposure control, adjustment of mA and/or kV according to patient size. COMPARISON: [facility], CT, CT CHEST HIGH RESOLUTION, 05/12/2016, 13:51. [facility], CT, CT CHEST WO CON, 03/14/2016, 11:10. FINDINGS: Image quality: Excellent. Pulmonary arteries: Pulmonary arteries are normal in size, and demonstrate no intraluminal filling defects to suggest central pulmonary embolism. Lungs and pleura: There are diffuse bilateral groundglass opacities with a centrilobular distribution which appear increased from the prior studies. No pleural effusions or pneumothorax. No acute consolidation. Central and peripheral airways are patent. Mediastinum: Heart size is normal, without pericardial effusion. There are mildly prominent mediastinal and hilar lymph nodes redemonstrated. There is aneurysmal dilatation of ascending thoracic aorta measuring up to approximately 4.3 cm, stable from the prior study. There is mild concentric wall thickening of the esophagus. Bones and chest wall: No suspicious bony lesions. Ribs and thoracic spine appear intact throughout. Thyroid gland demonstrates no discrete nodules. No axillary or supraclavicular adenopathy. Abdomen: Visualized upper abdominal solid organs appear normal in the early arterial phase of enhancement. IMPRESSION: 1. No evidence of pulmonary embolism. 2. Progressive increase in diffuse bilateral groundglass nodules which again likely represent hypersensitivity pneumonitis. Dictated by: Eros Boyle M.D. on 08/13/2016 at 16:41 Approved by: Eros Boyle M.D. on 08/13/2016 at 16:41 Cardiac Echo Impressions Echocardiogram Report Name: STEVEN DICKINSON AStudy Date: 03/14/2016 Height: 64 in [place] [employer] Exam Location: [facility] Weight: 174 lb Gender: Female BSA: 1.8 m2 : 1950 Age: 65 yrs BP: 127/82 mmHg Reason For Study: SOB Ordering Physician: Lea Smith Performed By: Nicolasa Nixon Referring Physician: RYAN Coker Interpretation Summary Left ventricular wall thickness is borderline increased. The ejection fraction is estimated to be 60-65%. Spectral Doppler of the mitral valve is reversed, with an E/A wave ratio < 1.0. There is mild aortic regurgitation. There is mild aortic valve sclerosis. The right ventricular systolic pressure is estimated at 29 mmHg assuming a right atrial pressure of 3 mm Hg. Echocardiogram Report Name: STEVEN DICKINSON AStudy Date: 08/15/2016 Height : 64 in Hospital Exam Location: [facility] Weight : 152 lb Gender: Female BSA: 1 .7 m2 : 1950 Age: 65 yrs BP: 11 3/71 mmHg Reason For Study: New Murmur Ordering Physician: NELLY GOMEZ EPerformed By: Eusebio Campos Referring Physician: NELLY GOMEZ Interpretation Summary The left ventricle is normal in size. Left ventricular systolic function is normal. AR by color doppler appears to be mild to moderate however increasing AR slope and decreasing PHT suggest worsening of AI especially with diastolic reversal in aorta, consider KAREN to evaluate AV. There is mild tricuspid regurgitation. The right ventricular systolic pressure is estimated at 43 mmHg assuming a right atrial pressure of 3 mm Hg. Compared to the prior echo exam, there has been an increase in the severity of pulmonary hypertension. Assessment & Plan 65 year old female with a history of hypothyroidism, depression admitted for worsening shortness of breath likely interstitial pneumonitis. Acute on chronic respiratory failure with hypoxia. 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 She did not require oxygen during that time. She is now hypoxic with any exertion. I got her up from her bed with room air to walk into the hallway and her O2 saturation dropped to 85% this was witnessed by her nurse Ysabel. - Patient has been following Dr. Lantigua for pulmonary care. A lung biopsy was performed 08/16/2015. Results are pending..Wedge biopsies were obtained from the right lower lobe, right middle lobe, and right upper lobe laterally, using single firings of the Hayes 60 mm stapler. There was no bleeding from wedge biopsy sites. Each specimen was sent separately for permanent pathology. The middle lobe specimen was the largest, so a small portion of it was sent separately for culture for fungus and acid-fast bacilli. - CTA chest revealed: Progressive increase in diffuse bilateral groundglass nodules. - He was initially placed on azithromycin and oral prednisone and patient subjectively improved. Lasix was also given yesterday 1 - Pulmonology evaluation to follow when Dr. Lantigua is available -The respiratory virus PCR screen is negative -Patient remains on prednisone 40 mg by mouth daily -Dr. Bernardo of infectious disease has been consulted and his impression and plan are as follows: "IMPRESSION: This patient is doing well, status post lung biopsy. There is little indication that she has a bacterial process ongoing here, and we await studies looking at the possibility of fungal or mycobacterial disease. RECOMMENDATIONS: 1. I agree with discontinuing the patient's azithromycin, as she has received a full course. 2. The patient can be discharged at any time from an infectious disease point of view. She should continue on the Valtrex, which she is on chronically for suppression of genital herpes. 3. Follow up in the Infectious Disease Clinic will be good dependent on whether not an infectious etiology is identified in the lung biopsies and/or pending serologies. 4. Infectious Disease will sign off at this time. " -We therefore discontinued azithromycin. Check final culture and pathology results of lung biopsy as mentioned above. Aortic valvular disease worsening compared to echocardiogram in February 2015. -, Recommend cardiology consult - Transesophageal echocardiogram is needed, as recommended by looping inspector reading the trans thoracic echocardiogram Hypothyroidism - Will continue home medication synthroid 50 mcg daily Depression - Will continue Wellbutrin 75 mg daily Mild leukocytosis - Likely reactive to to interstitial pneumonitis. Could be due to bilateral interstitial pneumonia - Will continue azithromycin Hyponatremia - Na: 131 - Will continue gentle IV hydration - Will continue to monitor Discussed with patient at bedside and she agrees with the above plan. GI ppx: PPI DVT ppx: Heparin Anti emetics and analgesics as per protocol. Disposition: Recommend cardiology consultation prior to discharge due to progressive aortic valvular disease. Dr. Price follow in a.m. for the hospital service. Pain Evaluation: Adequate Pain Control GI Prophylaxis: Proton Pump Inhibitor VTE Prophylaxis: Sub-Q Heparin (Unfractionated) VTE Mechanical Devices: Intermittant Pneumatic CD Resuscitation Status: CPR: Attempt Resuscitation MegNelly MD Aug 18, 2016 00:00
--- NOTE | 2016-08-18 05:27 | NUR ---
Respiratory Pt on RA most of shift. Pt will desat into the 80's with activity. Pt will wear O2 to walk to the bathroom and with activity. SpO2 92-94% on RA. PT has been independent in room to BR and strong steady gait noted. VSS and Tele SR 70's to 90's.
[2016-08-18 06:54] LABS: BASOPHILS % (AUTO) 0.1 % (0-3); EOSINOPHILS % (AUTO) 0.6 % (0-5); Mean Corpuscular Volume 95.2 fL (81-100); NEUTROPHILS % (AUTO) 61.9 % (40-74); Platelet Count 374 bil/L (150-400)
[2016-08-18] MEDS: Pantoprazole 40 mg ER24 Tablet PO SCH (07:30)
[2016-08-18 08:11] LABS: Angiotensin-Converting Enzyme 60 U/L (14-82)
[2016-08-18] MEDS: Heparin 5,000 Unit/mL Inj SUBQ SCH ×2 (08:30→16:30)
--- NOTE | 2016-08-18 08:46 | PROG NOTE ---
[address] [address] PROGRESS NOTE PATIENT: STEVEN DICKINSON : 1950 MR#: [id number] ADMIT: 08/13/2016 JOB ID: [id number] DATE: 08/18/2016 SUBJECTIVE: The patient is seen in followup. She feels much better today now that her chest tube has been removed. She just has some dull pain in the right lateral chest wall. OBJECTIVE: Temperature 36.6, pulse 71, blood pressure 117/75, saturation 94% on 1 L. General: She is sitting up in bed, in no acute distress. Chest: The right chest is clear, left chest has some scattered wheezes. The chest tube sites are clean with no drainage, and there is no erythema of the chest wall. Heart: Regular rate and rhythm. No murmurs. LABORATORIES: White count is 10.5, hematocrit 33.8. Creatinine 0.99. IMAGING: A portable chest x-ray today has not been read but my impression is that it shows no appreciable pneumothorax and no pleural effusion. ASSESSMENT AND PLAN: A 65-year-old woman with interstitial lung disease, postoperative day two, status post right video-assisted thoracoscopic surgery with wedge biopsies of right upper lobe, right middle lobe, right lower lobes. She is doing well clinically from a surgical standpoint, and I think she can be discharged to home today. She will follow up in the Surgery Clinic in 10-14 days for a wound check, and needs to follow up with Dr. Lantigua in pulmonary medicine to go over her lung biopsy results. Currently, she has an appointment in January, but she needs an appointment there much sooner than that.
[2016-08-18] MEDS: predniSONE 20 mg Tablet PO SCH (09:24)
[2016-08-18] MEDS ORDERED: PRED-508 PO (11:53)
--- NOTE | 2016-08-18 12:04 | PCM.DIMED ---
Discharge Instructions Date of Service Aug 18, 2016 Dates of Hospitalization Aug 13, 2016 at 18:16 Discharge Diagnosis Discharge Diagnosis Acute on chronic respiratory failure secondary to interstitial lung disease Aortic insufficiency Hypothyroidism Depression Mild Hyponatremia Medication Instructions Please wean off your prednisone over the next 5 days as directed. Please take this in the morning with food as this can irritate her stomach and cause insomnia if taken in the evening. Test Results Echocardiogram: Interpretation Summary The left ventricle is normal in size. Left ventricular systolic function is normal. AR by color doppler appears to be mild to moderate however increasing AR slope and decreasing PHT suggest worsening of AI especially with diastolic reversal in aorta, consider KAREN to evaluate AV. There is mild tricuspid regurgitation. The right ventricular systolic pressure is estimated at 43 mmHg assuming a right atrial pressure of 3 mm Hg. Compared to the prior echo exam, there has been an increase in the severity of pulmonary hypertension. Procedure: A two-dimensional transthoracic echocardiogram with color flow and Doppler was performed. The study quality was technically adequate. Comparison is made with the echocardiogram of 03/14/16. The patient was in normal sinus rhythm during the exam. Left Ventricle: The left ventricle is normal in size. There is normal left ventricular wall thickness. Left ventricular systolic function is normal. The ejection fraction is estimated to be 65-70%. There are no focal wall motion abnormalities. Spectral Doppler of the mitral inflow yields an E/A ratio that is between 0.8 and 1.5. Right Ventricle: The right ventricle is normal in size and function. Atria: Both atria are normal in size. The interatrial septum is intact with no evidence for an atrial septal defect. Mitral Valve: The mitral valve leaflets are thin and open well. There is mild mitral annular calcification. There is trace mitral regurgitation. Aortic Valve: The aortic valve is trileaflet. The aortic valve opens well. There is increased velocity at the left ventricular outflow tract. AR by color doppler appears to be mild to moderate however increasing AR slope and decreasing PHT suggest worsening of AI especially with diastolic reversal in aorta, consider KAREN to evaluate AV. Tricuspid Valve: The tricuspid valve is normal. There is mild tricuspid regurgitation. The right ventricular systolic pressure is estimated at 43 mmHg assuming a right atrial pressure of 3 mm Hg. There is mild pulmonary hypertension. Compared to the prior echo exam, there has been an increase in the severity of pulmonary hypertension. Pulmonic Valve: The pulmonic valve is not well visualized. There is a trace or physiologic amount of pulmonic regurgitation. Great Vessels: The aortic root is normal size. The ascending aorta is moderate-severely enlarged. This is increased compared to the previous study. The aortic arch is normal in size. The pulmonary artery is normal size. The IVC is of normal diameter and collapses greater than 50% with a sniff. This suggests a low right atrial pressure of 3 mm Hg. Pericardium/ Pleura There is no pericardial effusion. There is no pleural effusion. Diet Low fat, Low Sodium, Heart Healthy Activity No restrictions Call your provider Fever or Chills, Shortness of breath, Chest pain Patient Instructions Please follow-up with your surgery clinic for a wound check in 10-14 days. Please also follow up with Dr. Lantigua of pulmonology regarding her lung biopsy results, call for an appointment please. I spoke with Dr. Norman of cardiology and he does not believe he need a transesophageal echocardiogram at this time, but instead recommends a follow-up regular echocardiogram and possibly 2-3 months in the outpatient setting. I have prescribed a taper of prednisone to take over the next 5 days, please take as directed Follow-up with PCP in: 1 week Provider: [facility] Follow-up in: 1 week Arthur Price DO Aug 18, 2016 11:57
--- NOTE | 2016-08-18 12:09 | NUR ---
Social Work: Discharge Data: Pt is on day 5 of hospitalization. EMR reviewed. No d/c planning needs identified at this time. MUSIC REHABILITATION THERAPIST will continue to follow if needs arise. Assessment: Pt who is independent at baseline. Plan: Pt will d/c home via POV today with daughter. No d/c planning needs identified at this time. MUSIC REHABILITATION THERAPIST will continue to follow if needs arise. CYNDY Moreno
--- NOTE | 2016-08-18 12:13 | PCM.DC.MED ---
Discharge Summary Date of Service Aug 18, 2016 Dates of Hospitalization Date of Hospital Admission Aug 13, 2016 at 18:16 Date of Discharge: Aug 18, 2016 Providers: Admitting Physician: Leland Carter MD Primary Care Physician: Vira Coker Attending Physician: Leland Carter MD Diagnosis at Time of Discharge Diagnosis at Time of Discharge Acute on chronic respiratory failure secondary to interstitial lung disease Aortic insufficiency Hypothyroidism Depression Mild Hyponatremia Consultations Dr. Yanez of Gen. surgery Dr. Bernardo from infectious disease Procedures XRay, CTs & MRIs PROCEDURE: CT ANGIO CHEST PULMONARY EMBOLISM ([id number]) INDICATIONS: Tachycardia, hypoxia, shortness of breath. TECHNIQUE: After the administration of intravenous contrast, 2 mm thick sections acquired from the pulmonary apices to the posterior costophrenic angles. 3-dimensional maximum intensity projection (MIP) coronal and sagittal reformats were then acquired through the thorax. For radiation dose reduction, the following was used: automated exposure control, adjustment of mA and/or kV according to patient size. COMPARISON: [facility], CT, CT CHEST HIGH RESOLUTION, 05/12/2016, 13:51. [facility], CT, CT CHEST WO CON, 03/14/2016, 11:10. FINDINGS: Image quality: Excellent. Pulmonary arteries: Pulmonary arteries are normal in size, and demonstrate no intraluminal filling defects to suggest central pulmonary embolism. Lungs and pleura: There are diffuse bilateral groundglass opacities with a centrilobular distribution which appear increased from the prior studies. No pleural effusions or pneumothorax. No acute consolidation. Central and peripheral airways are patent. Mediastinum: Heart size is normal, without pericardial effusion. There are mildly prominent mediastinal and hilar lymph nodes redemonstrated. There is aneurysmal dilatation of ascending thoracic aorta measuring up to approximately 4.3 cm, stable from the prior study. There is mild concentric wall thickening of the esophagus. Bones and chest wall: No suspicious bony lesions. Ribs and thoracic spine appear intact throughout. Thyroid gland demonstrates no discrete nodules. No axillary or supraclavicular adenopathy. Abdomen: Visualized upper abdominal solid organs appear normal in the early arterial phase of enhancement. IMPRESSION: 1. No evidence of pulmonary embolism. 2. Progressive increase in diffuse bilateral groundglass nodules which again likely represent hypersensitivity pneumonitis. Dictated by: Eros Boyle M.D. on 08/13/2016 at 16:41 Approved by: Eros Boyle M.D. on 08/13/2016 at 16:41 August 17, chest x-ray IMPRESSION: 1. Stable position of right pleural drain and no definitive pneumothorax. 2. Persistent low lung volumes with bilateral atelectasis versus pneumonia similar to prior exam. Dictated by: Suhsa Plata RRA Interpreted: Ashley Martinez MD on 08/17/2016 at 10:00 Cardiac Echo Impression Echocardiogram Report Name: STEVEN DICKINSON AStudy Date: 03/14/2016 Height: 64 in Hospital Exam Location: [facility] Weight: 174 lb Gender: Female BSA: 1.8 m2 : 1950 Age: 65 yrs BP: 127/82 mmHg Reason For Study: SOB Ordering Physician: Lea Smith Performed By: Nicolasa Nixon Referring Physician: RYAN Coker Interpretation Summary Left ventricular wall thickness is borderline increased. The ejection fraction is estimated to be 60-65%. Spectral Doppler of the mitral valve is reversed, with an E/A wave ratio < 1.0. There is mild aortic regurgitation. There is mild aortic valve sclerosis. The right ventricular systolic pressure is estimated at 29 mmHg assuming a right atrial pressure of 3 mm Hg. Echocardiogram Report Name: STEVEN DICKINSON AStudy Date: 08/15/2016 Height : 64 in Hospital Exam Location: [facility] Weight : 152 lb Gender: Female BSA: 1 .7 m2 : 1950 Age: 65 yrs BP: 11 3/71 mmHg Reason For Study: New [place]mur Ordering Physician: NELLY GOMEZ EPerformed By: Eusebio Campos Referring Physician: NELLY GOMEZ Interpretation Summary The left ventricle is normal in size. Left ventricular systolic function is normal. AR by color doppler appears to be mild to moderate however increasing AR slope and decreasing PHT suggest worsening of AI especially with diastolic reversal in aorta, consider KAREN to evaluate AV. There is mild tricuspid regurgitation. The right ventricular systolic pressure is estimated at 43 mmHg assuming a right atrial pressure of 3 mm Hg. Compared to the prior echo exam, there has been an increase in the severity of pulmonary hypertension. Invasive Procedures Chest tube placed by surgery after lung biopsy and subsequently removed, patient tolerated and is up out of bed mobile Brief History 65 year old female with a history of hypothyroidism, depression, and HSV presented to the ED with c/o worsening SOB for two weeks. She states that shortness of breath started in October 2015 but she wasn't able to get a proper diagnosis. She has received CT scans previously which showed non-specific lung nodules which she is scheduled to have a biopsy for next Monday. She also reports intermittent cough with white sputum associated with mild head ache. She denies fever, chills, chest pain. She denies smoking. In ED, she was found to be tachycardic, normotensive, with 91% saturation on room air. Labs revealed leukocytosis and mild hyponatremia. Hospital Course 65 year old female with a history of hypothyroidism, depression admitted for worsening shortness of breath likely interstitial pneumonitis. - Now to be discharged home with home oxygen given her desaturations to 85% on room air with ambulation Acute on chronic respiratory failure with hypoxia. 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 She did not require oxygen during that time. This hypoxia since October, previous hospitalists got her up from her bed with room air to walk into the hallway and her O2 saturation dropped to 85% this was witnessed by her nurse Ysabel. - Patient has been following Dr. Lantigua for pulmonary care. A lung biopsy was performed 08/16/2015. Results are pending..Wedge biopsies were obtained from the right lower lobe, right middle lobe, and right upper lobe laterally, using single firings of the [place] 60 mm stapler. There was no bleeding from wedge biopsy sites. Each specimen was sent separately for permanent pathology. The middle lobe specimen was the largest, so a small portion of it was sent separately for culture for fungus and acid-fast bacilli. - CTA chest revealed: Progressive increase in diffuse bilateral groundglass nodules. -Patient was initially placed on azithromycin and oral prednisone and patient subjectively improved. Lasix was also given with mild improvement, azithromycin was discontinued and patient will be discharged with a oral prednisone taper over next 5 days - Pulmonology evaluation to follow when Dr. Lantigua is available - patient instructed to call for an appointment -The respiratory virus PCR screen is negative -Patient remains on prednisone 40 mg by mouth daily, as above prednisone taper will continue -Dr. Bernardo of infectious disease has been consulted and his impression and plan are as follows: "IMPRESSION: This patient is doing well, status post lung biopsy. There is little indication that she has a bacterial process ongoing here, and we await studies looking at the possibility of fungal or mycobacterial disease. RECOMMENDATIONS: 1. I agree with discontinuing the patient's azithromycin, as she has received a full course. 2. The patient can be discharged at any time from an infectious disease point of view. She should continue on the Valtrex, which she is on chronically for suppression of genital herpes. 3. Follow up in the Infectious Disease Clinic will be good dependent on whether not an infectious etiology is identified in the lung biopsies and/or pending serologies. 4. Infectious Disease will sign off at this time. " -We therefore discontinued azithromycin. Check final culture and pathology results of lung biopsy as mentioned above. Aortic valvular disease worsening compared to echocardiogram in February 2015. -Cardiology was consulted on day of discharge and after review of the recent echocardiogram, the study was deemed poor and a recommendation to repeat an echocardiogram after follow-up with PCP in 2-3 months was indicated no need for KAREN at this time, per Hypothyroidism - Will continue home medication synthroid 50 mcg daily upon discharge Depression - Will continue Wellbutrin 75 mg daily upon discharge Mild leukocytosis - Likely reactive to to interstitial pneumonitis. Could be due to bilateral interstitial pneumonia - Continue azithromycin, resolved Hyponatremia resolved - Na: 131 - Will continue gentle IV hydration - Will continue to monitor Exam Vital Signs (Last) Date Time Temp Pulse Resp B/P Pulse Ox O2 Delivery O2 Flow Rate FiO2 08/18/16 10:15 36.9 82 20 135/85 94 Nasal Cannula 1.00 Exam General: Patient is lying supine in bed postop and is comfortable. She is much more awake and alert today. She has no significant discomfort. She is on 1 L of oxygen per nasal cannula HEENT: Head is atraumatic normocephalic. Eyes: Pupils are equally round and reactive to light and accommodation. Extraocular muscles are intact. Sclera are white anicteric. Subconjunctival mucosa is pink. Ears and nose are unremarkable. Oropharynx: There is no mucosal lesions, there is no thrush, there is no pharyngitis. Neck: Is supple, there are no nodes, or masses or tenderness. Chest: Is significant for decreased breath sounds at the bases. However, the lungs are much clearer today. The chest tube has been removed. There are no significant rales, rhonchi, wheezes or rubs. Heart: Rate, rhythm is regular. There is no murmur, rub or gallop. Abdomen: Good bowel sounds are present. Abdomen is soft, nontender, no organomegaly or masses were appreciated. Extremities: Are symmetrical and well perfused. There is no edema, there is no cellulitis, no rash. Neurologic: There are no focal neurological deficits. Cranial nerves II through XII are intact. There are no sensory or motor deficits. Psychiatric: Patients mood is calm and shows no sign of agitation. Test 08/13/16 14:30 08/13/16 14:41 08/13/16 20:36 08/15/16 06:40 Troponin T < 0.010ug/L (0.0-0.011) Hold [place] Top Tube Received (Received) Urine Color Straw (YELLOW) Urine Appearance Clear (CLEAR,HAZY) Urine pH 6.0 (5.0-8.0) Urine Specific [place] 1.005 (1.003-1.035) Urine Protein Negativemg/dL (NEG,TRACE) Urine Glucose (UA) Negativemg/dL (NEGATIVE) Urine Ketones Negativemg/dL (NEGATIVE) Urine Occult Blood Negative (NEGATIVE) Urine Nitrite Negative (NEGATIVE) Urine Bilirubin Negative (NEGATIVE) Urine Urobilinogen Normalmg/dL (NORMAL) Urine Leukocyte Esterase Negative (NEGATIVE) Urine RBC 0-2/hpf (0-2) Urine WBC 0-5/hpf (0-5) Urine Epithelial Cells Few/hpf (NONE-MOD) Urine Crystals None seen (NONE SEEN) Urine Bacteria None/hpf (NONE-FEW) Urine Hyaline Casts None/lpf (NONE) Urine Granular Casts None seen (NONE SEEN) Urine Waxy Casts None seen (NONE SEEN) Urine Red Blood Cell Casts None seen (NONE SEEN) Urine White Blood Cell Casts None seen (NONE SEEN) Urine Mucus None seen (None Seen) Urine Trichomonas None seen (NONE SEEN) Urine Yeast None (NONE SEEN) Urine Culture Reflexed Not indicated Erythrocyte Sedimentation Rate 36mm/hr (0-40) C-Reactive Protein 6.3mg/dL (0.0-0.5) Globulin (PEP) 2.9g/dL (2.2-3.9) Albumin/Globulin Ratio 0.9 (0.7-1.7) Brftb-6-Kujhuxzaz 0.3g/dL (0.0-0.4) Kwicj-4-Osimgqzgd 0.8g/dL (0.4-1.0) Beta Globulins 0.8g/dL (0.7-1.3) Gamma Globulins 0.9g/dL (0.4-1.8) Serum Monoclonal Protein Not observedg/dL Protein Electrophoresis Comment Comment (.) Protein Electrophoresis Interpret Comment (.) Immunoglobulin E 33IU/mL (0-100) Test 08/16/16 05:40 08/18/16 06:17 Prothrombin Time 10.1sec (8.1-12.5) Prothromb Time International Ratio 0.95ratio Magnesium Level 1.8mg/dL (1.6-2.6) Pro-B-Type Natriuretic Peptide 1117pg/mL (0-301) Angiotensin Converting Enzyme 60U/L (14-82) Procalcitonin 0.08ng/mL (See Comment) HIV (1&2) Ag and Ab, 4th Generation Non reactive (Non Reactive) White Blood Count 10.5th/mm3 (3.8-10.1) Red Blood Count 3.55mil/mm3 (3.90-5.20) Hemoglobin 11.0g/dL (12.0-15.6) Hematocrit 33.8% (35.0-46.0) Mean Corpuscular Volume 95.2fL (81-100) Mean Corpuscular Hemoglobin 31.0pg (27.0-35.0) Mean Corpuscular Hemoglobin Concent 32.5% (32.0-37.0) Red Cell Distribution Width 14.2% (12.3-15.4) Platelet Count 374bil/L (150-400) Neutrophils (%) (Auto) 61.9% (40-74) Lymphocytes (%) (Auto) 28.2% (14-46) Monocytes (%) (Auto) 9.0% (4-12) Eosinophils (%) (Auto) 0.6% (0-5) Basophils (%) (Auto) 0.1% (0-3) Sodium Level 143mEq/L (134-144) Potassium Level 4.1mEq/L (3.5-5.2) Chloride Level 105mEq/L (97-108) Carbon Dioxide Level 26mmol/L (18-29) Blood Urea Nitrogen 23mg/dL (8-27) Creatinine 0.99mg/dL (0.57-1.00) Estimat Glomerular Filtration Rate 80mL/min (>59) Glucose Level 88mg/dL (60-99) Calcium Level 9.3mg/dL (8.5-10.1) Total Bilirubin 0.3mg/dL (0.0-1.2) Aspartate Amino Transf (AST/SGOT) 32U/L (0-50) Alanine Aminotransferase (ALT/SGPT) 28U/L (0-32) Alkaline Phosphatase 59U/L (25-165) Total Protein 6.0g/dL (6.4-8.4) Albumin 3.4g/dL (3.4-5.0) Microbiology Results Name: STEVEN DICKINSON Age/Sex: 65/F Attend Dr: Suni Lantigua MD Acct: [id number] Unit: [id number] Status: [facility] Location: [facility] Re06/09/16 Disch: Specimen: [id number] Collected: 06/09/16 Status: COMP Req#: [id number] Received: 06/09/16 Source: [facility] Sp Desc : Subm Dr: Suni Lantigua MD Ordered: ONEL DFA&CULT, AFB CULT & SMR Procedure Result Verified Site Microbiology LEGIONELLA DFA Final 06/21/161307 LCB Negative Reference Range: Negative * This is a corrected result. * A prior result that was reported as final has been changed. LEGIONELLA CULTURE Final 06/21/16- 1307 LCB Final report LEGIONELLA SP CULT RESULT 1 Final 06/21/161307 LCB Comment Culture Report: No Legionella species isolated. Performed at: [address] [id number] Treadle Cut Off Saw Operator: Prakash Mcclain MD, Phone: [phone] AFB SPECIMEN PROCESSING Final 07/26/16- 1207 LCB Concentration ACID FAST SMEAR Final 07/26/161207 LCB Negative * This is a corrected result. * A prior result that was reported as final has been changed. ACID FAST CULTURE Final 07/26/16- 1207 LCB Negative CONTINUED ON NEXT PAGE RUN DATE: 07/26/16 [facility] LIVE PAGE 2 RUN TIME: 1208 Specimen Inquiry PHYSICIAN Patient: STEVEN DICKINSON [id number] (Continued) Specimen: [id number] Collected: 06/09/16 Received: 06/09/16 (Continued) Procedure Result Verified Site ACID FAST CULTURE Final (continued) 07/26/16-1208 No acid fast bacilli isolated after 6 weeks. Performed at: [address] [address], [place], [place] [id number] Treadle Cut Off Saw Operator: Eros Day MD, Phone: [phone] Discharge Medications Discharge Medications Bupropion (Bupropion) 75 Mg Tablet 225 MG PO QAM (Reported) Cholecalciferol (Vitamin D3) (Vitamin D3) 3,000 Unit Tablet 2,000-3,000 UNIT PO DAILY (Reported) Estradiol (Estradiol) 0.5 Mg Tablet 0.5 MG PO DAILY (Reported) Gabapentin (Gabapentin) 300 Mg Capsule 300 MG PO HS (Reported) Levothyroxine (Levoxyl) 50 Mcg Tablet 50 MCG PO DAILY (Reported) Prednisone (Deltasone) 20 Mg Tablet 40 MG PO DAILY Day 1 08/19/16 - take 40mg Day 2 - 20mg Day 3 - 20mg Day 4 - 10mg Day 5 - 10mg stop Prescribed by: MONIQUE WRIGHT DO Valacyclovir (Valacyclovir) 500 Mg Tablet 500 MG PO HS (Reported) Miscellaneous Medications Multivitamin (Multivitamins) 1 Each Capsule 1 EACH PO (Reported) Additional med instructions Please wean off your prednisone over the next 5 days as directed. Please take this in the morning with food as this can irritate her stomach and cause insomnia if taken in the evening. Followup Plan Discharge Diet: Low fat, Low Sodium, Heart Healthy Discharge Activity: No restrictions Patient Instructions Please follow-up with your surgery clinic for a wound check in 10-14 days. Please also follow up with Dr. Lantigua of pulmonology regarding her lung biopsy results, call for an appointment please. I spoke with Dr. Norman of cardiology and he does not believe he need a transesophageal echocardiogram at this time, but instead recommends a follow-up regular echocardiogram and possibly 2-3 months in the outpatient setting. I have prescribed a taper of prednisone to take over the next 5 days, please take as directed Follow-up with PCP in: 1 week Provider: [facility] Follow-up in: 1 week Time spent 45 minutes spent with evaluation and management including coordination care, greater than 50% time spent [id number] copies to: Vira Coker; Suni Lantigua MD, David DO Aug 18, 2016 12:13
--- NOTE | 2016-08-18 12:15 | NUR ---
Desats Pt ambulating in hallway on RA. Pt's sats at 95% at the beginning but desating to 82% with ambulation, requiring to be placed on a wheel chair to be wheeled back to her room. Pt placed on O2 at 1L with sats in the mid 90's.
--- NOTE | 2016-08-18 13:35 | NUR ---
Ambulating Sp02 82%, placed on 2lpm while ambulating Sp02 95%. Qualifies for home oxygen. Setup with [facility].
--- NOTE | 2016-08-18 15:42 | DRSVH ---
PROCEDURE: X-RAY CHEST ONE VIEW, PORTABLE ([id number]) INDICATIONS: evaluate for pneumothorax s/p chest tube removal TECHNIQUE: One view of the chest was acquired. COMPARISON: [facility], CT, CT ANGIO CHEST PE, 08/13/2016, 15:38. [facility] , CR, XR CHEST 2VW, 08/15/2016, 9:21. [facility], CR, XR CHEST 1VW (PORTABLE), 08/16/2016, 17:45. [facility], CR, CHEST 2 VIEW, 12/15/2015, 17:28. [facility], CR, XR CHEST 1 VW (PORTABLE), 08/17/2016, 5:46. FINDINGS: Surgical changes and devices: None. Lungs and pleura: Trace right apical pneumothorax. No pleural effusions. Patchy left basilar opacitie s noted. Ill-defined nodular opacities in the right midlung Mediastinum: Mediastinal contours appear normal. Heart size is normal. Bones and chest wall: No suspicious bony lesions. Lateral curvature of the spine Overlying soft tis sues appear unremarkable. IMPRESSION: Status post removal of right chest tube. Trace right apical pneumothorax. Ill-defined nodular opacities projecting in the right midlung, technically non-specific although luz maria mmend followup with PA and lateral chest radiographs to document resolution and exclude pulmonary nod ule. Patchy consolidation at left lung base presumably atelectasis/aspiration and appears mildly improved Dictated by: Hammad Armijo M.D. on 08/18/2016 at 15:41 Approved by: Hammad Armijo M.D. on 08/18/2016 at 15:41
--- NOTE | 2016-08-18 18:52 | NUR ---
Discharge Note Pt verbalized understanding of all discharge instructions, medications/Rx, follow up appts. Care Notes provided. Dressing change to R chest after pt showerd. Pt discharged home with all belongings accompanied by family.
--- NOTE | 2016-08-22 09:00 | PATH ---
SURGICAL PATHOLOGY Attending Physician:Sarai Jackson CASE STATUS: Signed Out PATIENT NAME: STEVEN DICKINSON PID: [id number] : 1950 DATE COLLECTED:08/16/2016 00:00 SPECIMEN: 1: Lung Biopsy 2: Lung Biopsy 3: Lung Biopsy CLINICAL HISTORY: INTERSTITIAL LUNG DISEASE 1). RIGHT LOWER LOBE BIOPSY 2). RIGHT MIDDLE LOBE BIOPSY 3). RIGHT UPPER LOBE BIOPSY FINAL DIAGNOSIS: 1.RIGHT LOWER LOBE BIOPSY: GRANULOMATOUS INFILTRATE, SEE COMMENT. NO EVIDENCE OF MALIGNANCY. 2.RIGHT MIDDLE LOBE BIOPSY: GRANULOMATOUS INFILTRATE, SEE COMMENT. NO EVIDENCE OF MALIGNANCY. 3.RIGHT UPPER LOBE BIOPSY: GRANULOMATOUS INFILTRATE, SEE COMMENT. NO EVIDENCE OF MALIGNANCY. ICD10 CODEJ84.9 NOTE: The differential diagnosis of this histologic pattern includes sarcoidosis and hypersensitivity pneumonitis. This case is being sent to the [facility] for a pulmonary pathology consultation to further classify the disease process. An addendum will be issued following receipt of the [facility] report. GROSS DESCRIPTION: The specimens are received in formalin, labeled with the patient's name, and sublabeled as the following: (1) R lower lobe Bx; (2) R mid lobe; (3) R upper lobe. (1) The specimen consists of a lung wedge (4.1 x 1.1 x 0.5 cm). The resection margin is received stapled. The pleura is red-brown smooth and shiny with focal pallor. The parenchyma is red-brown and focally pale-gavin and firm. Ink code: black-resection margin. Section code: (1A-1B) lung wedge, serially sectioned. Specimen entirely submitted. (2) The specimen consists of a lung wedge (3.2 x 1.4 x 0.8 cm). The resection margin is received stapled. The pleura is pale gavin and pink smooth shiny and puckered. The parenchyma is pale gavin and focally firm. Ink code: black-resection margin. Section code: (2A-2B) lung wedge, serially sectioned. Specimen entirely submitted. (3) The specimen consists of a lung wedge (4.2 x 1.2 x 0.5 cm). The resection margin is received stapled. The pleura is pale gavin and pink, smooth and shiny, with a bright white puckered area (0.8 x 0.3 cm) located 0.6 cm from the resection margin. The parenchyma is pale gavin and focally firm with pallor. Ink code: black-resection margin. Section code: (3A-3B) lung wedge, serially sectioned. Specimen entirely submitted. 08/17/16 MICRO DESCRIPTION: 1., 2. and 3. Sections are of pulmonary parenchyma with abundant noncaseating granulomas with epithelioid and multinucleated giant cells. They are clustered and distributed in a lymphatic distribution. The granulomas are fairly uniform in size. Unaffected alveolar septa are unremarkable and show no significant fibrosis. Special stains are performed to evaluate for acid fast and fungal organisms. Stains are performed on blocks 1B, 2B, and 3A. A Gomori methenamine silver stain is used for fungal stain, a Kinyoun acid fast stain for acid fast organisms. Positive controls stain appropriately. Result: The patient tissue shows no staining with GMS or AFB stains. Interpretation: Special stains of the patient tissue are negative for acid fast and fungal organisms. ICD-9 CODES: CPT CODES: 1: 63803, 12410, 65051 2: 92012, 28155, 67307 3: 65671, 81992, 52668 PROCEDURE/ADDENDA: Addendum SPI Addendum Diagnosis Slides reviewed at [facility] by Fernando Ramos MD, PhD Pathologist, with the following diagnosis and comments: Right lower lobe, wedge biopsy (1): Extensive granulomatous inflammation (see comment). No evidence of neoplasm. Right middle lobe, wedge biopsy (2): Extensive granulomatous inflammation (see comment). Negative for neoplasm. Right upper lobe, wedge biopsy (3): Extensive granulomatous inflammation (see comment). Negative for neoplasm. Comment: Thank you for this interesting case in consultation. All three biopsies demonstrate similar pathologic findings and severity of disease. All three biopsies show extensive granulomatous inflammation. The granulomas are uniform in size, tend to conglomerate together, and are often found in a lymphatic distribution but are also frequently found within alveolar lung tissue. Necrosis is absent except for a single granuloma with a trace of central necrosis. There is no significant birefringent foreign material. A few multinucleated giant cells contain crystals consistent with endogenously-produced calcium oxalate. The background lung tissue is relatively free of inflammation. Reactive fibrosis is present in the vicinity of the granulomas. We did not find evidence of fungi or acid-fast bacilli on our review of your specially stained slides. The overall character, number, and multiplicity of the granulomas are strongly suggestive of sarcoidosis. Sarcoidosis is a diagnosis of exclusion, however, and the differential primarily includes fungal and mycobacterial infection (despite the absence of detected organisms on the special stains), beryllium exposure, and florid hypersensitivity pneumonitis. Given the provided clinical history, florid hypersensitivity pneumonitis has to be considered seriously. However, the lymphatic distribution of some of the granulomas, the multiplicity of granulomas, and their well-formed nature is somewhat against the possibility of HP but, we cannot exclude the possibility of florid disease. Beryllium exposure and infection need to be excluded clinically. Please correlate with clinical and radiographic findings. Addendum Comment Please see [facility] report [id number] for complete details. Electronically Signed Out Harper Ramos MD Electronically Signed Out Harper Ramos MD [facility] Pathology [facility] [address], [place] [address] Technical component performed at [facility], [facility] [address], [place], [address]
== END 2016-08-18 18:39 | disposition home or self-care (01) | DRG 166 ==
LOC: SED 13:32 → MPC 18:16 → OBSVTOIN 18:16 → INTOOBSV 18:16
PROVIDERS: ADMIT Internal Medicine; ATTEND Internal Medicine
PROC: 0BBD4ZX Excision of Right Middle Lung Lobe, Percutaneous Endoscopic Approach, Diagnostic (ICD-10-PCS; 2016-08-16)
PROC: 0BBC4ZX Excision of Right Upper Lung Lobe, Percutaneous Endoscopic Approach, Diagnostic (ICD-10-PCS; 2016-08-16)
PROC: 0BBF4ZX Excision of Right Lower Lung Lobe, Percutaneous Endoscopic Approach, Diagnostic (ICD-10-PCS; principal; 2016-08-16 16:00)
DX: J84.89 Other specified interstitial pulmonary diseases (principal); J96.21 Acute and chronic respiratory failure with hypoxia; E87.1 Hypo-osmolality and hyponatremia; E03.9 Hypothyroidism, unspecified; F32.9 Major depressive disorder, single episode, unspecified